=== PATIENT | male | born 1935 | race Caucasian/White ===

== ENCOUNTER → 2018-08-21 11:51 | Outpatient (CLI) | payer OTHER, SELFPAY ==
--- NOTE | 2018-08-21 | DI.US.S_ITS ---
PROCEDURE: US RENAL COMPLETE INDICATIONS: CKD TECHNIQUE: Real-time scanning was performed of the kidneys and bladder, with image documentation. COMPARISON: [facility], CT, ABDOMEN/PELVIS WITH CONTRAST, 01/01/2010, 14:05. FINDINGS: Kidneys: Kidneys are asymmetric in size. Right kidney measures 9.2 cm long; left kidney measures 13.3 cm long. Right renal cortical thickness is 0.8 cm; left renal cortical thickness is 1.9 cm. Renal cortical echotexture is normal on the right than on the left there appears to be an inferior directed mass lesion that is solid, measuring 3.4 x 3.8 x 2.9 cm. Elevated internal blood flow could not be visualized within this structure.. No hydronephrosis or nephrolithiasis. No suspicious solid mass lesions. Bladder: Pre-void bladder volume is 467 mL. Post-void residual is 24 mL. Pre-void images demonstrate no intraluminal masses or stones. On pre-void images, neither ureteral jets are noted with color Doppler interrogation. (Of note, ureteral jets may not be detectable in up to 25% of cases due to insufficient differences in specific gravity between ureteral and bladder urine). Miscellaneous: No free pelvic fluid. IMPRESSION: Masslike rounded structure projects exophytic from the inferior third of the left kidney, measuring up to 2.9 x 3.8 x 3.4 cm. Renal malignancy protocol CT or MR scanning is recommended to more accurately assess this structure. There is mild renal cortical lobulation involving the renal cortex bilaterally, but a lobulation that would mimic the appearance of the exophytic left lower renal cortical mass is not present on prior CT scanning from 2009. Moderate post void residual at the bladder lumen, 204 cc. Dictated by: Trevin Tabor M.D. on 08/21/2018 at 13:02 Approved by: Trevin Tabor M.D. on 08/21/2018 at 13:06
== END ==
PROVIDERS: PCP Family Medicine; Visit Provider Internal Medicine Nephrology
DX: N18.9 Chronic kidney disease, unspecified (principal)
CPT/HCPCS: 76770

== ENCOUNTER → 2018-09-14 16:54 | Outpatient (CLI) | payer OTHER, SELFPAY ==
--- NOTE | 2018-09-14 16:56 | DI.MRI.S_ITS ---
PROCEDURE: MR ABDOMEN WO CON INDICATIONS: LEFT RENAL MASS TECHNIQUE: Coronal HASTE, axial 2-D FLASH in- and [id number] with subtractions from the hepatic dome to the iliac crests. COMPARISON: None. FINDINGS: Image quality: Excellent. Kidneys: Diffuse thinning of the right renal cortex, but focal segmental anterior upper pole thinning of the left renal cortex with preservation of the left posterior renal cortex thickness. Scattered exophytic and cortical medullary cysts present in each kidney ranging in size from a few millimeters to the largest in the right lower pole measuring 2.0 cm. Along the lower pole of left kidney, there is a questionable exophytic solid mass versus preserved renal cortical thickness measuring about 2.8 x 4.1 x 3.1 cm which demonstrates isointense, to minimally hyperintense signal to renal cortex. There is a small cystic component present. Other solid organs: Liver is normal in overall size. Minimal parenchymal signal drop on out of phase imaging indicating slight fatty infiltration. Gallbladder may contain a 6 mm stone dependently near the gallbladder neck. Gallbladder morphology is otherwise normal. Biliary system is non dilated. Pancreas is normal in morphology. Spleen is normal in size. No adrenal nodules. Nodes and vessels: No retroperitoneal or mesenteric adenopathy by size criteria. Aorta and inferior vena cava are normal in size. Bowel and peritoneum: Unenhanced bowel loops are normal in caliber. No free fluid. Lung bases: No basal pleural effusions. Heart size is normal. Fat-containing hiatal hernia. Bones and soft tissues: No ventral hernias. Bone marrow is of normal overall signal. IMPRESSION: 1. 4.1 cm parenchymal abnormality arising from the anterior lower pole of left kidney may be a solid mass or lobulated, preserved renal cortex in the setting of segmental cortical atrophy and elsewhere in the kidney. Without the aid of IV contrast, delineation of a discrete mass is difficult. Consider half dose gadolinium based IV contrast enhanced MR images were versus imaging followup in 6 months. There is no local adenopathy. 2. Diffuse right renal atrophy and segmental left renal atrophy. 3. Possible cholelithiasis. 4. Minor hepatic steatosis. Dictated by: Fanny Chris M.D. on 09/15/2018 at 8:38 Approved by: Fanny Chris M.D. on 09/15/2018 at 9:09
== END ==
PROVIDERS: PCP Family Medicine; Visit Provider Internal Medicine Nephrology
DX: N28.89 Other specified disorders of kidney and ureter (principal); N26.1 Atrophy of kidney (terminal)
CPT/HCPCS: 74181

== ENCOUNTER → 2018-12-23 10:33 | Outpatient (CLI) | payer OTHER, SELFPAY ==
--- NOTE | 2018-12-23 | DI.US.S_ITS ---
PROCEDURE: US RENAL COMPLETE INDICATIONS: Disorder of kidney and ureter, unspecified TECHNIQUE: Real-time scanning was performed of the kidneys and bladder, with image documentation. COMPARISON: [facility], MR, MR ABDOMEN WO CON, 09/14/2018, 17:09. [facility], US, US RENAL COMPLETE, 08/21/2018, 12:00. FINDINGS: Kidneys: Kidneys are normal in size. Right kidney measures 9.4 cm long; left kidney measures 13.2 cm long. Right renal cortical thickness is 0.9 cm; left renal cortical thickness is 0.8 cm. Renal cortical echotexture is normal. No hydronephrosis or nephrolithiasis. Exophytic solid hypoechoic mass redemonstrated involving the inferior pole left kidney unchanged in size measuring 3.3 x 3.4 x 2.9 cm. Bilateral renal cysts redemonstrated measuring up to 2.6 cm on the right than 0.9 cm on the left. Bladder: Pre-void bladder volume is 242 mL. Post-void residual is 125 mL. Pre-void images demonstrate no intraluminal masses or stones. On pre-void images, bilateral ureteral jets are noted with color Doppler interrogation. (Of note, ureteral jets may not be detectable in up to 25% of cases due to insufficient differences in specific gravity between ureteral and bladder urine). Miscellaneous: No free pelvic fluid. IMPRESSION: 1. Exophytic, hypoechoic solid-appearing left inferior pole mass redemonstrated which is not significantly changed from prior ultrasound or MRI. Indolent renal cell carcinoma cannot be excluded and continued sonographic followup is recommended or alternatively renal protocol CT for further characterization. Dictated by: Ayo NORWOOD Interpreted: Joe Boo MD on 12/23/2018 at 13:30 Approved by: Joe Boo M.D. on 12/23/2018 at 16:01
== END ==
PROVIDERS: PCP Family Medicine; Visit Provider Internal Medicine Nephrology
DX: N28.89 Other specified disorders of kidney and ureter (principal); N28.1 Cyst of kidney, acquired
CPT/HCPCS: 76770

== ENCOUNTER → 2019-04-07 13:43 | Outpatient (CLI) | payer OTHER, SELFPAY ==
--- NOTE | 2019-04-07 | DI.US.S_ITS ---
PROCEDURE: US RENAL COMPLETE INDICATIONS: RENAL MASS TECHNIQUE: Real-time scanning was performed of the kidneys and bladder, with image documentation. COMPARISON: [facility], , US RENAL COMPLETE, 12/23/2018, 10:43. FINDINGS: Kidneys: Kidneys are stable in size. Right kidney measures 9.1 cm long; left kidney measures 13.6 cm long. Right renal cortical thickness is 0.6 cm; left renal cortical thickness is one point cm. No hydronephrosis or nephrolithiasis. Bilateral renal cysts are again noted. Largest is seen on the right measuring up to 1.8 cm, previously 2.6 cm. Left renal cyst measures approximately 9 mm. There is a stable 3.7 cm heterogeneously hypoechoic, solid-appearing mass in the inferior pole of the left kidney with associated vascularity. Right kidney is without suspicious solid mass lesions. Bladder: Pre-void bladder volume is 346 mL. Post-void residual is 289 mL. Pre-void images demonstrate no intraluminal masses or stones. On pre-void images, left ureteral jets are noted with color Doppler interrogation. Right ureteral jet was not visualized. (Of note, ureteral jets may not be detectable in up to 25% of cases due to insufficient differences in specific gravity between ureteral and bladder urine). Miscellaneous: No free pelvic fluid. IMPRESSION: 1. Stable sonographic appearance of the left kidney with persistent 3.7 cm inferior pole partially exophytic heterogeneous mass versus lobular renal contour. As before, an indolent renal cell carcinoma cannot be completely excluded. Recommend continued clinical and imaging surveillance. 2. Stable sonographic appearance of the right kidney which is again smaller than the left side and demonstrates mild cortical thinning. 3. Bilateral renal cysts are again noted. They appear stable on the left and smaller on the right. 4. Normal sonographic appearance of the distended urinary bladder with post void residual volume measuring 289 mL. Dictated by: Eduardo Roca M.D. on 04/07/2019 at 15:26 Approved by: Eduardo Roca M.D. on 04/07/2019 at 15:34
== END ==
PROVIDERS: PCP Family Medicine; Visit Provider Internal Medicine Nephrology
DX: N28.89 Other specified disorders of kidney and ureter (principal); N28.1 Cyst of kidney, acquired
CPT/HCPCS: 76770

== ENCOUNTER 2019-06-28 14:31 | Emergency (ER) | payer OTHER, SELFPAY ==
[2019-06-28 14:58] VITALS: BP 156/64; PULSE 62; RESP 15; TEMP 36.6; O2SAT 96
[2019-06-28 16:01] LABS: Bacteria Urine None Seen; RBC Urine None Seen (0-5/HPF); WBC Urine None Seen (0-5/HPF)
[2019-06-28 16:13] LABS: Culture Indicated Urine Cult Not Indicated; Squamous Epithelial Cell Urine 0-1 /HPF (0-5/HPF)
[2019-06-28 16:56] VITALS: BP 145/67; PULSE 64; RESP 15; O2SAT 96
--- NOTE | 2019-06-28 17:03 | ED_ITS ---
HPI - Male Genitourinary <Carly Romeromer, [employer] - Last Filed: 06/28/19 17:07> General Chief complaint: Urogenital-Male Stated complaint: Unable to Urinate Time Seen by Provider: 06/28/19 14:48 Source: patient Mode of arrival: Ambulatory Limitations: no limitations History of Present Illness HPI Narrative: The patient is an 83-year-old male with history of urinary retention who presents for chief complaint of inability to urinate. He states that he has been having trouble voiding for the past 2-3 days. He states that last night was very painful is unable to urinate, only voided a small stream this morning and now has pain in his bladder. He denies any dysuria urgency or frequency. Denies any hematuria. States he has called his primary care provider, who has sent in a referral for Urology Related Data Home Medications Medication Instructions Recorded Confirmed allopurinol 300 mg PO DAILY #0 01/01/10 06/28/19 aspirin 81 mg PO DAILY #0 01/01/10 06/28/19 tamsulosin 0.8 mg PO DAILY #0 01/01/10 06/28/19 acetaminophen 325 - 650 mg PO Q4-6H PRN 06/28/19 06/28/19 amlodipine 10 mg PO DAILY 06/28/19 06/28/19 atorvastatin 40 mg PO DAILY 06/28/19 06/28/19 cyclobenzaprine 10 mg PO TID PRN 06/28/19 06/28/19 gabapentin 100 mg PO TID PRN 06/28/19 06/28/19 hydralazine 20 mg PO TID 06/28/19 06/28/19 hydrochlorothiazide 25 mg PO DAILY 06/28/19 06/28/19 hydrocodone-acetaminophen 1 tab PO Q4-6H PRN 06/28/19 06/28/19 indomethacin 50 mg PO Q8H PRN 06/28/19 06/28/19 insulin NPH and regular human 46 unit SUBCUT BID 06/28/19 06/28/19 [Humulin 70/30 U-100 Insulin] isosorbide mononitrate 60 mg PO DAILY 06/28/19 06/28/19 levothyroxine 50 mcg PO DAILY 06/28/19 06/28/19 lisinopril 30 mg PO BID 06/28/19 06/28/19 metoprolol succinate 200 mg PO DAILY 06/28/19 06/28/19 nitroglycerin [Nitrostat] 0.4 mg SUBLINGUAL Q5-15M PRN 06/28/19 06/28/19 Allergies Allergy/AdvReac Type Severity Reaction Status Date / Time Anesthetic, Local Allergy Unknown Uncoded 09/24/17 12:52 Review of Systems <[facility] - Last Filed: 06/28/19 17:07> Review of Systems Narrative: GENERAL: Denies chills, fatigue, malaise, fever, sweats. HEENT: Denies sinus pain, ear pain, sore throat, difficulty swallowing, dizziness. RESPIRATORY: Denies dyspnea, cough, wheezing, hemoptysis, sputum. CARDIOVASCULAR: Denies chest pain, palpitations, orthopnea, edema, GASTROINTESTINAL: See HPI : See HPI MUSCULOSKELETAL: denies weakness, joint pain, or bony pain SKIN: Denies rash, skin lesions, or other NEUROLOGIC: Denies weakness, headache, numbness, change in speech, confusion, seizures, incoordination. PSYCHIATRIC: No concerning psychosocial issues. 12 point review of systems is negative except for those stated above Patient History <[facility] - Last Filed: 06/28/19 17:07> Social History Smoking Status: Never smoker Smoking Status: Never smoker Substance Use Type: does not use Exam <Carlyjeff Telles [facility] - Last Filed: 06/28/19 17:07> Narrative Exam Narrative: GENERAL: This is a well-nourished, well-developed patient, in no acute distress HEAD: Atraumatic. Normocephalic. No temporal or scalp tenderness. EYES: Pupils equal round and reactive. Extraocular motions intact. No scleral icterus. No injection or drainage. ENT: Nose without bleeding, purulent drainage or septal hematoma. Throat without erythema, tonsillar hypertrophy or exudate. Uvula midline. Airway patent. NECK: Trachea midline. No JVD or lymphadenopathy. Supple, nontender, no meningeal signs. CARDIOVASCULAR: Regular rate and rhythm RESPIRATORY: Clear to auscultation. Breath sounds equal bilaterally. No wheezes, rales, or rhonchi. The no cough. No increased respiratory effort. No accessory muscle use. GASTROINTESTINAL: Abdomen soft, non-tender, nondistended. No hepato- splenomegaly, or palpable masses. No guarding. Active bowel sounds all [address]rants. [address] catheter in place draining clear yellow urine, approximately 400 cc in bag EXTREMITIES: No clubbing, cyanosis, or edema. No joint tenderness, effusion, or edema noted. BACK: Nontender without deformity or crepitance. No flank tenderness. NEURO: AOx3. SKIN: No rash or erythema. Initial Vital Signs Initial Vital Signs: Vital Signs Temperature 97.9 F 06/28/19 14:58 Pulse Rate 62 06/28/19 14:58 Respiratory Rate 15 06/28/19 14:58 Blood Pressure 156/64 H 06/28/19 14:58 Pulse Oximetry 96 06/28/19 14:58 <Deann Gimenez DO - Last Filed: 06/29/19 09:06> Initial Vital Signs Initial Vital Signs: Vital Signs Temperature 97.9 F 06/28/19 14:58 Pulse Rate 62 06/28/19 14:58 Respiratory Rate 15 06/28/19 14:58 Blood Pressure 156/64 H 06/28/19 14:58 Pulse Oximetry 96 06/28/19 14:58 Course <ANGLE Melton - Last Filed: 06/28/19 17:07> Orders Ordered: ED Orders 06/28/19 15:40 Urine Microscopic Stat Vital Signs Vital signs: Vital Signs - 8 hr 06/28/19 14:58 06/28/19 16:56 Temperature 97.9 F Pulse Rate 62 64 Respiratory Rate 15 15 Blood Pressure 156/64 H Blood Pressure [Left Arm] 145/67 H Pulse Oximetry 96 96 <DO Daniel Wilkins Last Filed: 06/29/19 09:06> Orders Ordered: ED Orders 06/28/19 15:40 Urine Microscopic Stat Vital Signs Vital signs: Vital Signs - 8 hr 06/28/19 14:58 06/28/19 16:56 Temperature 97.9 F Pulse Rate 62 64 Respiratory Rate 15 15 Blood Pressure 156/64 H Blood Pressure [Left Arm] 145/67 H Pulse Oximetry 96 96 MDM - Male Genitourinary <ANGLE Melton - Last Filed: 06/28/19 17:07> Differential Diagnosis Differential diagnosis: Likely urinary tract infection and acute retention of urine Lab Data Labs: Lab Results 06/28/19 Range/Units 15:40 Urine RBC None seen (0-5/HPF) Urine WBC None seen (0-5/HPF) Ur Squamous Epith Cells 0-1 /hpf (0-5/HPF) Urine Bacteria None seen (None) Ur Culture Indicated? Cult not indicated Urine Dip Bedside Urine Glucose 100 mg/dl Bedside Urine Bilirubin - Negative Bedside Urine Ketone +/- 5 Urine Specific Osborn 1.020 Bedside Urine Occult Blood - Negative Bedside Urine pH 5.5 Bedside Urine Protein +/- 15 Bedside Urine Urobilinogen - Negative Bedside Urine Nitrite - Negative Bedside Urine Leukocytes - Negative Esterase MDM Narrative Medical decision making narrative: The patient is an 83-year-old male who presents with a chief complaint of urinary retention that started last night. He presented in immediately received Henry catheter by nursing. This relieved his pain completely knee felt much improved. No signs of infection in his urine. Patient states his primary care provider was placing a urology referral. I discussed at length monitoring for signs and symptoms of infection such as fever, pain, etcetera. Encouraged coming back to the emergency department for any acute concerns. I did offer to check his renal function, but he declined stating he has a renal ultrasound next week. Patient was discharged home with . They've no questions or concerns upon discharge and states understanding of return precautions as well as follow-up care. They state they're comfortable taking care of a Henry catheter at home. <Deann Gimenez, - Last Filed: 06/29/19 09:06> Lab Data Labs: Lab Results 06/28/19 Range/Units 15:40 Urine RBC None seen (0-5/HPF) Urine WBC None seen (0-5/HPF) Ur Squamous Epith Cells 0-1 /hpf (0-5/HPF) Urine Bacteria None seen (None) Ur Culture Indicated? Cult not indicated Urine Dip Bedside Urine Glucose 100 mg/dl Bedside Urine Bilirubin - Negative Bedside Urine Ketone +/- 5 Urine Specific Osborn 1.020 Bedside Urine Occult Blood - Negative Bedside Urine pH 5.5 Bedside Urine Protein +/- 15 Bedside Urine Urobilinogen - Negative Bedside Urine Nitrite - Negative Bedside Urine Leukocytes - Negative Esterase Discharge Plan Departure Patient Disposition: Home Clinical Impression: Acute retention of urine Discharge Date/Time: 06/28/19 17:29 Instructions: How to Care for Your Henry Catheter -- Male, DI for Urinary Retention in Men Activity Restrictions/Additional Instructions: Today we inserted a Henry catheter help drain her bladder. There are no signs of infection with your urine. Please follow-up with primary care provider in the next few days. From what it sounds like, over already contacted them and they are helping arrange a urology referral Please monitor for signs of infection such as fever, pain etcetera please come back to the emergency department for any acute concerns Prescriptions: No Action aspirin 81 mg Tablet,Delayed Release (Dr/Ec) 81 mg PO DAILY Qty: 0 RF: 0 tamsulosin 0.4 mg Capsule 0.8 mg PO DAILY Qty: 0 RF: 0 allopurinol 300 mg Tablet 300 mg PO DAILY Qty: 0 RF: 0 hydrocodone-acetaminophen 5-325 mg tablet 1 tab PO Q4-6H PRN (Reason: pain) RF: 0 cyclobenzaprine 10 mg Tablet 10 mg PO TID PRN (Reason: Muscle Spasm) RF: 0 hydralazine 10 mg Tablet 20 mg PO TID RF: 0 atorvastatin 80 mg Tablet 40 mg PO DAILY RF: 0 acetaminophen 325 mg Tablet 325 - 650 mg PO Q4-6H PRN (Reason: Fever Or Pain) RF: 0 metoprolol succinate 200 mg Tablet Extended Release 24 Hr 200 mg PO DAILY RF: 0 Humulin 70/30 U-100 Insulin 100 unit/mL (70-30) Suspension 46 unit SUBCUT BID RF: 0 isosorbide mononitrate 60 mg Tablet Extended Release 24 Hr 60 mg PO DAILY RF: 0 amlodipine 10 mg Tablet 10 mg PO DAILY RF: 0 levothyroxine 50 mcg Tablet 50 mcg PO DAILY RF: 0 indomethacin 50 mg Capsule 50 mg PO Q8H PRN (Reason: JOINT PAIN) RF: 0 nitroglycerin [Nitrostat] 0.4 mg Tablet, Sublingual 0.4 mg SUBLINGUAL Q5-15M PRN (Reason: Chest Pain) RF: 0 lisinopril 30 mg Tablet 30 mg PO BID RF: 0 hydrochlorothiazide 25 mg Tablet 25 mg PO DAILY RF: 0 gabapentin 100 mg Capsule 100 mg PO TID PRN (Reason: PAIN) RF: 0 Referrals: Christy Canas MD [Primary Care Provider] -
== END 2019-06-28 17:29 | disposition home or self-care (01) ==
PROVIDERS: Emergency Provider Nurse Practitioner Family; PCP Student in an Organized Health Care Education/Training Program
DX: R33.9 Retention of urine, unspecified (principal)
CPT/HCPCS: 51701; 51705; 51798; 81003; 81015; 99284

== ENCOUNTER → 2019-07-05 11:50 | Outpatient (CLI) | payer OTHER, SELFPAY ==
--- NOTE | 2019-07-05 | DI.US.S_ITS ---
PROCEDURE: US RENAL COMPLETE INDICATIONS: KIDNEY MASS TECHNIQUE: Real-time scanning was performed of the kidneys and bladder, with image documentation. COMPARISON: [facility], US, US RENAL COMPLETE, 12/23/2018, 10:43. [facility], MR, MR ABDOMEN WO CON, 09/14/2018, 17:09. [facility], US, US RENAL COMPLETE, 04/07/2019, 14:02. FINDINGS: Kidneys: Kidneys are normal in size. Right kidney measures 10.3 cm long; left kidney measures 12.9 cm long. Right renal cortical thickness is 0.7 cm; left renal cortical thickness is 1.4 cm. Renal cortical echotexture is normal. No hydronephrosis or nephrolithiasis. No suspicious solid mass lesions. Left renal cyst measuring 2.6 cm. Left renal cortical scarring involving the inferior pole. No mass is seen on today's examination. Bladder: Henry catheter present. Miscellaneous: No free pelvic fluid. IMPRESSION: 1. Left renal focal cortical scarring and no definite left renal mass seen. 2. Right renal cortical thinning. Dictated by: Ayo Coffey [facility] Interpreted: Marcos Mcfarland MD on 07/05/2019 at 13:31 Approved by: Marcos Mcfarland M.D. on 07/05/2019 at 20:51
== END ==
PROVIDERS: PCP Student in an Organized Health Care Education/Training Program; Visit Provider Internal Medicine Nephrology
DX: N28.89 Other specified disorders of kidney and ureter (principal); N28.1 Cyst of kidney, acquired
CPT/HCPCS: 76770

== ENCOUNTER 2019-08-10 10:53 | Observation (INO) | payer OTHER, SELFPAY ==
[2019-08-10] VITALS (7 sets, daily range): BP systolic 143–198; BP diastolic 55–93; PULSE 77–89; RESP 15–19; TEMP 36.7–37.6; O2SAT 95–98; BMI 34.0
--- NOTE | 2019-08-10 | DI.US.S_ITS ---
PROCEDURE: US CAROTID DOPPLER BI INDICATIONS: LEFT SIDED WEAKNESS,NUMBNESS 7 WEEKS.EVAL FOR CVA TECHNIQUE: Color and pulse Doppler interrogation was performed of both carotid systems, with image documentation and velocity measurements. COMPARISON: [facility], , CAROTID ARTERY DOPPLER BILAT, 07/26/2013, 7:33. FINDINGS: Stenosis calculations are based on SRU (Society of Radiologists in Ultrasound) criteria. Right side: Common carotid artery peak systolic velocity: 76 cm/sec. Internal carotid artery peak systolic velocity: 136 cm/sec. Internal carotid artery end diastolic velocity: 24 cm/sec. External carotid artery peak systolic velocity: 192 cm/sec. ICA/CCA peak systolic ratio: 1.7. Hoover scale imaging description: Mild to moderate calcific plaque Percent internal carotid artery stenosis: 50-69% stenosis within the proximal right internal carotid artery.. Vertebral artery: Flow direction is antegrade. Left side: Common carotid artery peak systolic velocity: 83 cm/sec. Internal carotid artery peak systolic velocity: Occluded Internal carotid artery end diastolic velocity: Occluded External carotid artery peak systolic velocity: 127 cm/sec. ICA/CCA peak systolic ratio: Not applicable. Hoover scale imaging description: Occlusive dense plaque at the proximal internal carotid artery on the left Percent internal carotid artery stenosis: Not applicable. Vertebral artery: Flow direction is antegrade. 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 Dictated by: Trevin Tabor M.D. on 08/11/2019 at 14:38 Approved by: Trevin Tabor M.D. on 08/11/2019 at 14:42
--- NOTE | 2019-08-10 | DI.US.S_ITS ---
PROCEDURE: US RENAL COMPLETE INDICATIONS: SURVEILANCE OF RENAL MASS TECHNIQUE: Real-time scanning was performed of the kidneys and bladder, with image documentation. COMPARISON: [facility], MR, MR ABDOMEN WO CON, 09/14/2018, 17:09. [facility], , US RENAL COMPLETE, 07/05/2019, 12:31. [facility], , US RENAL COMPLETE, 04/07/2019, 14:02. FINDINGS: Kidneys: Kidneys are asymmetric in size. Right kidney measures 8.0 cm long; left kidney measures 12.3 cm long. Right renal cortical thickness is 0.8 cm; left renal cortical thickness is 1.0 cm. Renal cortical echotexture is normal. No hydronephrosis or nephrolithiasis. No suspicious solid mass lesions on the right but there is a left-sided solid mass which has been followed over time. This mass is well seen by ultrasound and measures 3.2 x 3.8 x 3.5 cm with internal vascularity. It has not definitely enlarged. Bladder: Pre-void bladder volume is 762 mL. Post-void residual is 353 mL. Pre-void images demonstrate no intraluminal masses or stones. On pre-void images, left but not the right ureteral jets are noted with color Doppler interrogation. (Of note, ureteral jets may not be detectable in up to 25% of cases due to insufficient differences in specific gravity between ureteral and bladder urine). Miscellaneous: No free pelvic fluid. IMPRESSION: No change in size of the solid lower pole exophytic mass lesion involving the left kidney, likely a low-grade left renal cell carcinoma. 2. Relative atrophy right kidney. No hydronephrosis or nephrolithiasis is found bilaterally. Dictated by: Trevin Tabor M.D. on 08/11/2019 at 14:42 Approved by: Trevin Tabor M.D. on 08/11/2019 at 14:47
--- NOTE | 2019-08-10 | DI.ECHO.S_ITS ---
[place] [facility]---------+ [facility] +---------+ : : [address] : : : : [id number] : : : : Phone: [phone]+ Echocardiogram Report + + :Name: SANTY MCNAIR Study Date: 08/11/2019 Height: 69 in : :[facility] Weight: 226 lb : : Gender: Male BSA: 2.2 m2 : :: 1935 Age: 83 yrs BP: 144/79 mmHg: :Reason For Study: left sided weakness/ numbness x7 weeks. : :Ordering Physician: Yas : :Hospitalist Performed By: Madeline Ortiz : :Referring: MERCED TAMEZ : + + Interpretation Summary Overall left ventricular systolic function is preserved with the ejection fraction visually estimated to be 55-60% with a fairly small, focal area of significant hypokinesis in the mid interventricular septum but no other regional wall motion abnormalities. Left ventricular wall thickness is borderline increased with mild proximal septal thickening noted. The right ventricle is normal size and systolic function is borderline reduced. Pulmonary artery pressures cannot be estimated because of the lack of a measurable TR jet velocity but the IVC suggests a CVP of around 3 mmHg. Both atria are normal in size. The aortic valve is moderately calcified with mild aortic stenosis with a peak aortic velocity of 2.5 m/s and a mean gradient of 13 mmHg. There is no other significant valvular heart disease. The aortic arch is normal in size but with moderate calcification noted. Procedure: A two-dimensional transthoracic echocardiogram with color flow and Doppler was performed. The study quality was technically adequate. There is no prior echocardiogram noted for this patient. The patient was in normal sinus rhythm during the exam. Left Ventricle: The left ventricle is normal in size. Left ventricular wall thickness is borderline increased. There is mild proximal septal thickening noted. Overall left ventricular systolic function is preserved. The ejection fraction is estimated to be 55-60%. There is a fairly small, focal area of significant hypokinesis in the mid interventricular septum but no other regional wall motion abnormalities. Diastolic function could not be accurately assessed due to unobtainable data. Right Ventricle: The right ventricle is normal size. Right ventricular systolic function is borderline reduced. Atria: Both atria are normal in size. There is no Doppler evidence for an interatrial shunt. Mitral Valve: The mitral valve is grossly normal. There is no mitral regurgitation noted. Aortic Valve: The aortic valve is trileaflet. The aortic valve is moderately calcified. Reduced mobility of the non-coronary cusp. There is mild aortic stenosis. The peak aortic velocity is 2.5 m/sec. The aortic valve mean gradient is 13 mmHg. No aortic regurgitation is present. Tricuspid Valve: The tricuspid valve is normal in structure and function. There is a trace or physiologic amount of tricuspid regurgitation. Pulmonary artery pressures cannot be estimated because of the lack of a measurable TR jet velocity but the IVC suggests a CVP of around 3 mmHg. Pulmonic Valve: The pulmonic valve is normal in structure and function. There is no pulmonic valvular regurgitation. There is no other significant valvular heart disease. Great Vessels: The aortic root is normal size. The ascending aorta could not be visualized. The aortic arch is normal in size. But with moderate calcification noted. The IVC is of normal diameter and collapses greater than 50% with a sniff. This suggests a low right atrial pressure of 3 mm Hg. Pericardium/ Pleura There is no pericardial effusion. There is no pleural effusion. MMode/2D Measurements & Calculations LVIDd: 5.2 cm LVOT diam: 2.3 cm LVIDs: 3.8 cm Ao root diam: 2.9 cm FS: 26.8 % Ao Arch Diam (Prox Trans): 2.6 cm IVSd: 1.0 cm LVPWd: 1.2 cm LV corcoran. diameter/BSA (cm/m^2): 2.4 LV sys. diameter/BSA (cm/m^2): 1.8 LA A2 area: 20.7 cm2 RA long axis: 6.2 cm LA A4 area: 17.1 cm2 RA area: 19.9 cm2 LA length (vol): 5.3 cm RA vol: 54.7 ml LA vol: 56.4 ml RA : 25.1 ml/m2 LA vol index: 25.9 ml/m2 IVC diam: 1.2 cm RVD1 (basal): 3.0 cm TAPSE: 1.5 cm Doppler Measurements & Calculations Ao V2 max: 251.5 cm/sec LVOT Max Mode: 103.4 cm/sec Ao V2 mean: 187.4 cm/sec LV V1 max P.3 mmHg Ao max P.5 mmHg LV V1 VTI: 22.6 cm Ao mean P.8 mmHg ASHLEE(I,D): 1.9 cm2 Ao V2 VTI: 48.5 cm ASHLEE(V,D): 1.7 cm2 sev ratio: 0.46 ASHLEE indexed to BSA (cm^2/m^2): 0.90 Med Peak E' Mode: 11.2 cm/sec PA V2 max: 100.2 cm/sec Lat Peak E' Mode: 10.5 cm/sec PA V2 mean: 70.2 cm/sec PA mean P.2 mmHg PA Accel Time: 0.13 sec SV(LVOT): 94.6 ml Reading Physician:MUNA
--- NOTE | 2019-08-10 11:09 | DI.CT.S_ITS ---
PROCEDURE: CT HEAD/BRAIN WO CON INDICATIONS: cva, left sided weakness over several weeks. TECHNIQUE: Noncontrast 4.5 mm thick angled axial sections acquired from the foramen magnum to the vertex, with coronal and sagittal reformats. For radiation dose reduction, the following was used: automated exposure control, adjustment of mA and/or kV according to patient size. COMPARISON: None. FINDINGS: Image quality: Excellent. CSF spaces: Basal cisterns are patent. No extra-axial fluid collections. The ventricles are symmetric in size and shape. Brain: No intracranial bleeds or masses. There is cerebral volume loss for age, with resultant ventricular and sulcal prominence. There are periventricular and deep white matter chronic small vessel ischemic changes. There is intracranial internal carotid artery atherosclerosis. Skull and face: Calvarium and visualized facial bones appear intact, without suspicious lesions. Sinuses: Visualized sinuses and mastoids are clear except for a right-sided chronic appearing maxillary sinus opacification with reactive mild thickening of the osseous margins of the sinus (establishing chronicity).. IMPRESSION: Source of the asymmetric left-sided weakness persisting over several weeks is not found. Dictated by: Trevin Tabor M.D. on 08/10/2019 at 11:30 Approved by: Trevin Tabor M.D. on 08/10/2019 at 11:32
--- NOTE | 2019-08-10 11:12 | ED_ITS ---
HPI - Neuro Symptoms/Deficit General Chief Complaint: Neuro Symptoms/Deficit Stated Complaint: possibility of stroke Time Seen by Provider: 08/10/19 11:09 Source: patient Mode of arrival: Ambulatory Limitations: no limitations History of Present Illness HPI Narrative: This is an 83-year-old comes to the emergency department with complaint of possible stroke. His primary care contacted me and was concerned as patient has had some foot drop in his left foot and increasing weakness in his left upper extremity over the last several weeks. Patient states that these did seem to be sort of abruptly on set. Patient is for initial stroke evaluation and then to recontact Dr. Canas with results for potential admis shannon for the final workup. On evaluation patient states about 7 weeks ago he was having what sounds like some sort of urinary retention had a catheter removed was in place 3 weeks was removed had urinary infection was on antibiotics but had to have them switch secondary to adverse reaction to the m edication which he is still taking the 2nd antibiotic but he has had some symptoms in his urinary frequency and nocturia. He states that he has had left thigh numbness and hot feeling and was told he had meralgia paresthetica [place] also had weakness in the left foot and foot drop and notes that he cannot drive a stick shift and his toes catch on rugs when he walks. He states this is been going on for least 2 weeks has been slowly improving but the left leg is significantly weaker and the left upper extremity he has noted has also been weaker. And patient had bursitis. He gets Cordis all shots in the left arm. He has had no recent traumas or falls. He is insulin-dependent diabetic on hyp ertension, dyslipidemia an aspirin 81 mg with a TIA 10-15 years ago which he believes affected his right side, hypothyroid, BPH and gout history, CKD stage 4. He has had a CABG about 23 years ago, appendectomy and had a colon resection during his appendectomy when they incidentally found colon cancer. No tobacco, no alcohol and no illicit. Dr. Canas is his primary care. His data services developer is Dr. 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 On Anticoagulants: Yes (asa) Related Data Home Medications Medication Instructions Recorded Confirmed allopurinol 300 mg PO QPM #0 01/01/10 08/10/19 aspirin 81 mg PO DAILY #0 01/01/10 08/10/19 tamsulosin 0.8 mg PO QPM #0 01/01/10 08/10/19 acetaminophen 325 - 650 mg PO Q4-6H PRN 06/28/19 08/10/19 amlodipine 10 mg PO DAILY 06/28/19 08/10/19 atorvastatin 40 mg PO QPM 06/28/19 08/10/19 cyclobenzaprine 10 mg PO TID PRN 06/28/19 08/10/19 gabapentin 100 mg PO TID PRN 06/28/19 08/10/19 hydralazine 10 mg PO BID 06/28/19 08/10/19 hydrochlorothiazide 25 mg PO DAILY 06/28/19 08/10/19 hydrocodone-acetaminophen 1 tab PO Q4-6H PRN 06/28/19 08/10/19 indomethacin 50 mg PO Q8H PRN 06/28/19 08/10/19 isosorbide mononitrate 60 mg PO DAILY 06/28/19 08/10/19 levothyroxine 50 mcg PO DAILY 06/28/19 08/10/19 lisinopril 30 mg PO BID 06/28/19 08/10/19 metoprolol succinate 200 mg PO DAILY 06/28/19 08/10/19 nitroglycerin [Nitrostat] 0.4 mg SUBLINGUAL Q5-15M PRN 06/28/19 08/10/19 insulin NPH and regular human 46 unit SUBCUT BID 08/10/19 08/10/19 [Humulin 70/30 U-100 Insulin] Allergies Allergy/AdvReac Type Severity Reaction Status Date / Time Anesthetic, Local Allergy Unknown Uncoded 08/10/19 11:12 Review of Systems Review of Systems ROS Unobtainable: All systems reviewed & are unremarkable except as noted in HPI and below Patient History Social History Smoking Status: Never smoker Smoking Status: Never smoker alcohol intake frequency: holidays/special occasions only Substance Use Type: does not use Exam Narrative Exam Narrative: GEN: well nourished, well appearing male, alert and oriented x 3, patient appears to be in mild distress. HEENT: Atraumatic, pupils are equal round reactive to light, extraocular movements are intact, nares are clear, TMs are clear with no fluid, there is no conjunctival pallor. Throat is clear without any exudates, erythema, tonsillar enlargement or uvular deviation, no facial droop appreciated. HEART: Regular rate and rhythm without murmur, clicks, rubs. Pulses are equal in upper and lower extremities LUNGS:Lungs clear to auscultation, no wheezes, rales, crackles, chest moves symmetrically, no tachypnea or accessory muscle use. ABD:bowel sounds normal, soft, non-tender, no guarding, rebound, rigidity, no masses noted, no hepatosplenomegaly :No CVA tenderness MSCL: Non-tender, no muscle atrophy, muscles strength 5/5 upper and lower extremity on the right, left patient can holds upper extremity for 10 seconds but his left production line is significantly decreased compared to the right, full range of motion of upper extremities, patient has difficulty with some drop in his left lower extremity on testing. He also has some weakness with dorsiflexion on the left foot. NEURO:CN 2-12 intact, sensation normal, reflexes 2/4 upper and lower extremities. finger nose finger test normal, heel dubon test normal on right, and on left patient has difficulty. SKIN: no rash or skin changes. noted. Initial Vital Signs Initial Vital Signs: Vital Signs Temperature 98.1 F 08/10/19 10:57 Pulse Rate 81 08/10/19 10:57 Respiratory Rate 15 08/10/19 10:57 Blood Pressure 198/81 H 08/10/19 10:57 Pulse Oximetry 98 08/10/19 10:57 Scores NIH Stroke Scale Level of Conciousness: Alert, keenly responsive Ask month/age: Answers both questions correctly. Open/close eyes, close hand: Performs both tasks correctly Best gaze horizontal: Normal Visual crabtree: No visual loss Facial palsy: Normal symetrical movement Left arm drift: No drift for full 10 sec Right arm drift: No drift for full 10 sec Left leg drift: Drifts down, not to bed Right leg drift: No drift for full 10 sec Limb ataxia: Present in one limb Sensory on face/arms/legs: Normal, no sensory loss Best language: No aphasia, normal Dysarthria: Normal Extinction or inattention: No abnormality Total NIH Stroke scale score: 2 Course Orders Ordered: ED Orders 08/10/19 11:09 CT head/brain wo con Stat Urine Drug Screen, Rapid Stat 08/10/19 12:00 Basic Metabolic Panel Stat Complete Blood Count AUTO DIFF Stat Partial Thromboplastin Time Stat Prothrombin Time INR Stat Sodium Chloride (Normal Saline 0.9%) 1,000 mls @ 150 mls/hr IV CONT JOHN Last Admin: 08/10/19 12:11 Dose: 150 mls/hr Documented by: HYACINTH Discontinued Medications Aspirin (Aspirin Chew) 324 mg PO NOW ONE Stop: 08/10/19 11:57 Last Admin: 08/10/19 12:10 Dose: 324 mg Documented by: HYACINTH Vital Signs Vital signs: Vital Signs - 8 hr 08/10/19 10:57 08/10/19 11:00 08/10/19 12:00 Temperature 98.1 F Pulse Rate 81 77 79 Respiratory Rate 15 18 19 Blood Pressure 198/81 H Blood Pressure [Left Arm] 165/55 H 178/77 H Pulse Oximetry 98 95 96 MDM - Neuro Symptoms/Deficit Lab Data Attestation: I reviewed the patient's lab results. Result diagrams: 08/10/19 12:00 08/10/19 12:00 Labs: Lab Results 08/10/19 08/10/19 08/10/19 Range/Units 12:00 12:00 12:00 WBC 5.5 (4.5-11.0) X10^3/uL RBC 4.01 L (4.5-5.9) X10^6/uL Hgb 12.8 L (13.5-17.5) g/dL Hct 38.4 L (41-53) % MCV 95.9 (80-100) fL MCH 31.9 (26-34) PG MCHC 33.3 (30-36) % RDW 15.6 H (11.6-14.8) % Plt Count 151 (150-400) X10^3/uL Neut % (Auto) 67.2 (50-75) % Lymph % (Auto) 21.1 L (25-40) % Park % (Auto) 9.1 (3-14) % Eos % (Auto) 2.0 (2-4) % Baso % (Auto) 0.6 (0-2) % Neut # (Auto) 3700 (6309-2726) /uL Lymph # (Auto) 1200 (9935-0690) /uL Park # (Auto) 500 (0-900) /uL Eos # (Auto) 100 (0-450) /uL Baso # (Auto) 0 (0-100) /uL PT 14.0 H (10.1-12.7) SECONDS INR 1.2 (0.9-1.3) APTT 37 H (26.4-36.2) SECONDS Sodium 139 (137-145) mmol/L Potassium 5.0 (3.4-5.1) mmol/L Chloride 103 (98-107) mmol/L Carbon Dioxide 23 (22-32) mmol/L BUN 40 H (9-20) mg/dL Creatinine 2.30 H (0.66-1.25) mg/dL Estimated GFR 27.2 L (>60) mL/min BUN/Creatinine Ratio 17.4 (6-22) Glucose 324 H (80-110) mg/dL Calcium 10.2 (8.4-10.2) mg/dL Imaging Data CT scan - head: Radiologist's Impression: [place] [address] CT Scan Report Signed Patient: Ger Pickett [facility]#: [id number] : 5Acct:[id number] Age/Sex: 83 / MDate of Service: 08/10/19 Loc: ED Accession Number: [id number] Procedure: CT head/brain wo con Ordering Provider: Carly Deluca D.O. PROCEDURE: CT HEAD/BRAIN WO CON INDICATIONS: cva, left sided weakness over several weeks. TECHNIQUE: Noncontrast 4.5 mm thick angled axial sections acquired from the foramen magnum to the vertex, with coronal and sagittal reformats. For radiation dose reduction, the following was used: automated exposure control, adjustment of mA and/or kV according to patient size. COMPARISON: None. FINDINGS: Image quality: Excellent. CSF spaces: Basal cisterns are patent. No extra-axial fluid collections. The ventricles are symmetric in size and shape. Brain: No intracranial bleeds or masses. There is cerebral volume loss for age, with resultant ventricular and sulcal prominence. There are periventricular and deep white matter chronic small vessel ischemic changes. There is intracranial internal carotid artery atherosclerosis. Skull and face: Calvarium and visualized facial bones appear intact, without suspicious lesions. Sinuses: Visualized sinuses and mastoids are clear except for a right-sided chronic appearing maxillary sinus opacification with reactive mild thickening of the osseous margins of the sinus (establishing chronicity).. IMPRESSION: Source of the asymmetric left-sided weakness persisting over several weeks is not found. Dictated by: Trevin Tabor M.D. on 08/10/2019 at 11:30 Approved by: Trevin Tabor M.D. on 08/10/2019 at 11:32 ECG Data Attestation: I personally reviewed and interpreted this ECG as follows: Prior ECG tracings: available for review Interpretation: Sinus rhythm first-degree AV block rate of 77 AK 302, QRS of 100 QTC of 430. Nonspecific change, patient appears to have possible motion artifact . Patient has prior EKG from 01/03/2010 which shows similar changes with RSR in 3 AVF as well as T-wave inversion in aVL. No new ST segment changes are appreciated. MDM Narrative Medical decision making narrative: Patient comes in complaint with left-sided weakness and by primary care for concern for CVA. Patient definitely has decreased production line with his left upper extremity he has drift as well as footdrop in the left lower extremity. He has had some symptoms that are possibly concerning or more nerve impingement but with his lateralizing weakness on 1 side and what he describes as for acute onset is concerning for stroke. Initial head CT is negative CTA is deferred as patient has chronic kidney disease stage 4 will likely need MRI and rather than having double dose of contrast he is far outside the tPA or intervention window. Patient EKG does not show any acute changes. Patient's creatinine is 2.3 patient has stage 4 chronic kidney disease I do not have comparison from prior but this is likely close to baseline glucose is 324 electrolytes are normal although BUN is 40. Patient has anemia 12.8 no compariso n is no leukocytosis, RGW is elevated 15. Patient is far outside the window for tPA intervention or thrombolysis. An with patient's chronic kidney disease CTA was deferred so that patient could potentially receive MRI depending on his renal function. Spoke with Dr. Canas, she accepts for observation. Discussed patient's findings. Patient states that he has had discussions about MRI with his data services developer in the past he could potentially have an MRI with slightly decreased contrast does I do not have his prior GFR is available so she will follow-up with his data services developer to see if we can get this arranged and if his current GFR is appropriate. Discharge Plan Departure Patient Disposition: Admitted as Observation Clinical Impression: Cerebrovascular accident Referrals: Christy Canas MD [Primary Care Provider] - Admit Date/Time: 08/10/19 12:54 Admit Provider: Christy Canas
[2019-08-10] MEDS: ASPIRIN 81 MG CHEW TAB 324 MG PO (12:10)
[2019-08-10] MEDS: SODIUM CHLORIDE 0.9% 1,000 ML 150 ML IV (12:11)
[2019-08-10 12:14] LABS: Add Manual Diff / Slide Review NO; Basophils Absolute Auto 0 /uL (0-100); Basophils Percent Auto 0.6 % (0-2); Eosinophils Absolute Auto 100 /uL (0-450); Hematocrit 38.4 % (41-53); Hemoglobin 12.8 g/dL (13.5-17.5); Lymphocytes Absolute Auto 1200 /uL (1100-4500); Lymphocytes Percent Auto 21.1 % (25-40); Mean Corpuscular HGB Conc 33.3 % (30-36); Mean Corpuscular Hemoglobin 31.9 PG (26-34); Mean Corpuscular Volume 95.9 fL (80-100); Monocytes Absolute Auto 500 /uL (0-900); Monocytes Percent Auto 9.1 % (3-14); Neutrophils Absolute Auto 3700 /uL (1500-7000); Neutrophils Percent Auto 67.2 % (50-75); Platelet Count 151 X10^3/uL (150-400); Red Blood Cell Count 4.01 X10^6/uL (4.5-5.9); Red Cell Distribution Width 15.6 % (11.6-14.8); White Blood Cell Count 5.5 X10^3/uL (4.5-11.0)
[2019-08-10 12:22] LABS: INR 1.2 (0.9-1.3)
[2019-08-10 12:25] LABS: PTT Partial Thromboplastin Tim 37 SECONDS (26.4-36.2)
[2019-08-10 12:34] LABS: BUN Creatinine Ratio 17.4 (6-22); Blood Urea Nitrogen 40 mg/dL (9-20); Calcium 10.2 mg/dL (8.4-10.2); Carbon Dioxide 23 mmol/L (22-32); Chloride 103 mmol/L (98-107); Estimated Glomerular Filt Rate 27.2 mL/min (>60); Glucose 324 mg/dL (80-110); HEMOLYSIS 73 (0-50); Sodium 139 mmol/L (137-145)
--- NOTE | 2019-08-10 13:29 | PC.NURSE ---
Left foot weakness with drift. 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 Has bilateral neck pain, symptoms worsening over the last few weeks.
--- NOTE | 2019-08-10 14:38 | PC.NURSE ---
Patient alert oriented, c/o pain to left thigh,hand and neck. NIH 0, patient oriented to room and call light, bed alarm placed. at bedside.
--- NOTE | 2019-08-10 16:54 | P.HP_ITS ---
History of Present Illness History of Present Illness Date Patient Seen: 08/10/19 Time Patient Seen: 16:54 Chief complaint: possibility of stroke Narrative: 83 year old male is admitted from the ED secondary to TIA/stroke rule out. He presented in clinic today with left-sided arm and leg numbness and weakness x 7 weeks. The first symptom was left-sided numbness in his thigh from his hip to his knee status post a urinary catheterization for bladder outlet obstruction. There was associated pain, redness and swelling of the left thigh. He subsequently had an indwelling catheter for 3 weeks and was supposed to be on both pre-and post catheterization antibiotics. He did not complete the post catheterization antibiotics due to the weakness which was thought to be possibly a side effect from his antibiotics. He subsequently developed a urinary tract infection and is now on day 7/10 of antibiotics. Reports that his dysuria, polyuria, and urinary urgency have resolved. However, he continues to have left-sided thigh numbness and weakness. In the last 10 days, symptoms have worsened and he has not been able to lift his toes anymore and is starting to have foot drop. He cannot engage the gears on his motorcycle and has stopped riding his motorcycle for this reason. 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 Denies a headache. No visual changes. His does report that his voice seems to be more slurred. History of TIA more than 15 years ago. 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 Most recent carotid Doppler on 07/26/2013 showed less than 50% stenosis bilaterally. He is on atorvastatin 40 mg p.o. nightly. Lipid panel on 06/17/19 revealed a total cholesterol of 140, HDL 34, triglycerides 508. LDL was unable to be calculated secondary to his high triglycerides. Medical history significant for coronary artery disease, exercise-induced angina, history of smoking, [id number] history quit at age 34, NSTEMI, diabetes, and colon cancer. Recently saw his urologist, Dr. Workman, on 04/12/19. He noted a left renal abnormality on MRI and ultrasound that was stable at 3.7 cm, renal cell carcinoma cannot be ruled out. Plan is to repeat imaging in 3 months (now) and if stable, again in 6 months. Vital signs upon admission to the ED included temperature 98.1?, pulse 81, respirations 15, blood pressure 198/81 O2 saturation 9% on room air. Repeat blood pressure was 165/55. NIH stroke scale 2. EKG showed no change from baseline. CT of the head/brain was unremarkable for acute events. Lab workup significant for an INR 1.2 and creatinine of 2.3, baseline. Patient also had a mild normocytic/normochromic anemia that is relatively new to this patient. CBC on 07/05/2019 showed a hemoglobin of 13.0, hematocrit 38.9, normocytic/normochromic, essentially the same as today's labs. Past medical history: Diabetes mellitus type 2 Hyperlipidemia Hypertension Coronary artery disease Angina Chronic kidney disease stage 4 Hypothyroidism BPH with bladder outlet obstruction, status post TURP Arthritis Gout Heart murmur Bilateral cataracts Bilateral hearing loss Depression Ataxia Past surgical history: CABG Rotator cuff repair Colon cancer excision, 2009 Appendectomy, [address] elevation [place], 2009 Bilateral cataracts, 2014 Family history: Father with heart disease and hypertension Social history: , retired. Patient History Family & Social History Social History: household members spouse Prior Living Arrangements House Safety & Behavioral: Feels Safe in Current Yes Environment Been Physically Hurt or No Threatened By a Person Suicidal Ideation Description None Suicide Plan Description No Plan Tobacco & Substance use: Smoking Status Never smoker alcohol intake frequency holiday/special occasion Substance Use Type does not use Meds Home Medications and Allergies Home Medications Medication Instructions Recorded Confirmed Type allopurinol 300 mg PO QPM #0 01/01/10 08/10/19 History aspirin 81 mg PO DAILY #0 01/01/10 08/10/19 History tamsulosin 0.8 mg PO QPM #0 01/01/10 08/10/19 History acetaminophen 325 - 650 mg PO Q4-6H PRN 06/28/19 08/10/19 History amlodipine 10 mg PO DAILY 06/28/19 08/10/19 History atorvastatin 40 mg PO QPM 06/28/19 08/10/19 History cyclobenzaprine 10 mg PO TID PRN 06/28/19 08/10/19 History gabapentin 100 mg PO TID PRN 06/28/19 08/10/19 History hydralazine 10 mg PO BID 06/28/19 08/10/19 History hydrochlorothiazide 25 mg PO DAILY 06/28/19 08/10/19 History hydrocodone-acetaminophen 1 tab PO Q4-6H PRN 06/28/19 08/10/19 History indomethacin 50 mg PO Q8H PRN 06/28/19 08/10/19 History isosorbide mononitrate 60 mg PO DAILY 06/28/19 08/10/19 History levothyroxine 50 mcg PO DAILY 06/28/19 08/10/19 History lisinopril 30 mg PO BID 06/28/19 08/10/19 History metoprolol succinate 200 mg PO DAILY 06/28/19 08/10/19 History nitroglycerin [Nitrostat] 0.4 mg SUBLINGUAL Q5-15M PRN 06/28/19 08/10/19 History insulin NPH and regular human 46 unit SUBCUT BID 08/10/19 08/10/19 History [Humulin 70/30 U-100 Insulin] Allergies Allergy/AdvReac Type Severity Reaction Status Date / Time Anesthetic, Local Allergy Unknown Uncoded 08/10/19 11:12 Review of Systems Review of Systems ROS: Yes All systems reviewed with the patient and are negative except as otherwise documented Exam Vital Signs (past 8 hours): - 08/10/19 10:57 08/10/19 11:00 08/10/19 12:00 Temperature 98.1 F Pulse Rate 81 77 79 Respiratory Rate 15 18 19 Blood Pressure 198/81 H Blood Pressure [Left Arm] 165/55 H 178/77 H Pulse Oximetry 98 95 96 08/10/19 13:00 08/10/19 14:16 08/10/19 15:30 Temperature 98.8 F 99.4 F Pulse Rate 84 83 89 Respiratory Rate 16 18 17 Blood Pressure 145/93 H 143/79 H Blood Pressure [Left Arm] 190/84 H Pulse Oximetry 98 97 96 Oxygen Delivery Method Room Air Oxygen Flow Rate 0 Narrative Exam Narrative: General: Alert and oriented, appearing stated age and in no acute distress. Head: Head normocephalic/atraumatic. Eyes: conjunctiva and sclera clear, Ears: normal external exam, TM's intact and clear with normal canals, Nose: no deformity, discharge, inflammation, or lesions, Mouth: no deformity or lesions; pharynx normal without injection or exudate, Neck: Neck soft and supple, no lymphadenopathy. (unchanged from 06/17/2019) Lungs: Clear to auscultation bilaterally, no wheezes, rhonchi or rales. no wheezes rales or rhonchi. Heart: Normal S1 and S2 with regular rate and rhythm, no audible murmurs, rubs or gallops. Abdomen: Soft, non-tender, non-distended, no organomegaly. Possitive bowel sounds.bowel sounds positive. Msk: Increased muscle bulk and tone over cervical paraspinous muscles. Range of motion limited secondary to pain and side to side and head flexion and extension. Neurologic: CN II-XII grossly intact. Decreased sensation over left thigh from hip to knee. Strength 3/5 in left upper extremity and left lower extremity. Positive foot drop. Positive dysdiadochokinesia in left upper and lower extremity. Reduced [id number] testing in left upper extremity. Psych: Alert and oriented x 3. Objective Labs Result Diagrams: 08/10/19 12:00 08/10/19 12:00 Labs: Laboratory Results - last 24 hr 08/10/19 08/10/19 08/10/19 12:00 12:00 12:00 WBC 5.5 RBC 4.01 L Hgb 12.8 L Hct 38.4 L MCV 95.9 MCH 31.9 MCHC 33.3 RDW 15.6 H Plt Count 151 Neut % (Auto) 67.2 Lymph % (Auto) 21.1 L [place] % (Auto) 9.1 Eos % (Auto) 2.0 Baso % (Auto) 0.6 Neut # (Auto) 3700 Lymph # (Auto) 1200 [place] # (Auto) 500 Eos # (Auto) 100 Baso # (Auto) 0 PT 14.0 H INR 1.2 APTT 37 H Sodium 139 Potassium 5.0 Chloride 103 Carbon Dioxide 23 BUN 40 H Creatinine 2.30 H Estimated GFR 27.2 L BUN/Creatinine Ratio 17.4 Glucose 324 H Calcium 10.2 Assessment & Plan Assessment & Plan narrative: Assessment 1: Left-sided weakness and numbness, rule out stroke. Patient has risk factors including type 2 diabetes mellitus, CAD, CKD stage 4, hypertension, hyperlipidemia, and possible renal malignancy. Plan: Will look for underlying etiology with carotid Doppler and echo. Patient has declined MR stroke protocol secondary to his kidney disease. PT/OT/ST. Will continue aspirin and add Lovenox. Stroke precautions. Possible that he may have a DVT in his LLE due to his unilateral pain, redness, and swelling, will check D-dimer and proceed to duplex US if indicated. Assessment 2: Left renal abnormality, present on admission, 3.7 cm, concern for malignancy.. Plan: Due for repeat imaging, will complete ultrasound the hospital. Assessment 3: Diabetes mellitus type II with neuropathy, nephropathy, and vascular disease, insulin controlled, chronic. A1c 9.4% on 02/01, 6.3 on 06/03. Plan: Dr. Nunez, endocrinology consulting in the outpatient setting. Continu e home humalin 70/30 47 units qam and 35 units qhs. Glucose checks. Diabetic diet. Assessment 4: Hyperlipidemia, chronic, triglycerides not at goal of less than 150. LDL unknown, goal less than 50. Plan: Will increase atorvastatin from 40 to 80 mg p.o. q.h.s.. Assessment 5: Hypertension, chronic, goal <140/[address] Workman, nephrology. Plan: Continue home medications: Amlodipine, isosorbide, metoprolol, lisinopril, hydralazine, hydrochlorothiazide. Assessment 6: Coronary artery disease, chronic. Plan: Please see #1. Assessment 7: Angina, chronic, no current symptoms. Plan: Nitroglycerin as needed. Assessment 8: Chronic kidney disease stage 4, creatinine at baseline. Plan: Will trend. Assessment 9: Hypothyroidism, chronic, TSH 2.16 on 06/17/2019, at goal per endocrinology. Plan: Continue home dose of levothyroxine 50 mcg p.o. q.day. Assessment 10: BPH with bladder outlet obstruction, status post TURP and recent 3 week cathertization with subsequent UTI, present on admission, patient clinically asymptomatic. Plan: Catheter now out, on day 710 of antibiotics for recent UTI, continue. Continue home tamsulosin. Assessment 11: Arthritis, chronic. Plan: Patient denies any current complaints, will watch closely. Assessment 12: Gout, chronic Plan: Patient denies any current complaints, will watch closely. Assessment 13: Heart murmur, chronic Plan: Updating echo as noted in #1. Assessment 14: Ataxia, chronic. Plan: Patient is a fall risk, stroke precautions. PT to consult. Assessment 15: Anemia, normocytic/normochromic, present on admission, relatively new. Mild, likely multifactorial. Plan: Will trend CBC. DVT prophylaxis: Lovenox Code: Full Patient's expected length of stay: Greater than 2 midnights. Patient is under inpatient status due to severity of presenting symptoms, complexity of treatment plan, and risk of adverse event. Quality VTE Deep Vein Thrombosis/Pulmonary Embolism Present on Admission: No
[2019-08-10] MEDS: ATORVASTATIN 20 MG TABLET 80 MG PO (19:21)
[2019-08-10] MEDS: lisinopriL 10 MG TABLET 30 MG PO (19:22)
[2019-08-10] MEDS: HYDRALAZINE 10 MG TABLET PO (19:22)
[2019-08-10] MEDS: GABAPENTIN 100 MG CAPSULE PO (19:22)
[2019-08-10] MEDS: INSULIN NPH/REG 70-30 100 UNIT/ML 3ML VIAL 35 UNIT SUBCUT (19:23)
[2019-08-11] VITALS (8 sets, daily range): BP systolic 144–183; BP diastolic 79–82; PULSE 65–88; RESP 16–18; TEMP 36.3–37.8; O2SAT 94–97
--- NOTE | 2019-08-11 04:49 | PC.NURSE ---
Pt is AxOx3, VSS, tolerating room air. Doing wellTe NIH=0 Fingerstick overnight 82; asymptomatic 8oz OJ given SBA to BR. Had BM overnight No pain Reports numbness to anterior aspect of left thigh along with weakness to left arm/hand Tele: 1st AVB, BBB, Junctional
[2019-08-11] MEDS: LEVOTHYROXINE 50 MCG TABLET PO (05:30)
[2019-08-11 07:28] LABS: D Dimer 313 ng/mL (<230)
[2019-08-11 07:37] LABS: BUN Creatinine Ratio 14.8 (6-22); Blood Urea Nitrogen 31 mg/dL (9-20); Calcium 9.7 mg/dL (8.4-10.2); Carbon Dioxide 24 mmol/L (22-32); Chloride 105 mmol/L (98-107); Estimated Glomerular Filt Rate 30.2 mL/min (>60); Glucose 121 mg/dL (80-110); HEMOLYSIS < 15 (0-50); Potassium 4.4 mmol/L (3.4-5.1); Sodium 140 mmol/L (137-145)
--- NOTE | 2019-08-11 08:10 | ST.IPIE ---
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 Canas Reason for Referral TIA Stroke Protocol Past Medical History Patient History Patient was admitted for one sided weakness. CT was negative. He declined MRI secondary to kidney disease. 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 Able to hear when spoken to loudly and with assistance of lip reading. Educational Status Education Level Retired [employer] Previous Therapy Previous Speech-Language Therapy No Oral Motor Examination Oral Motor Exam Completed No Subjective Subjective Patient was sitting up in bed washing his face. He was alert , cooperative and pleasant. His was not present in the room. - - Receptive Language Yes/No Questions Skill Level WNL Following Directions - Verbal Skill Level WNL Defining Words Skill Level WNL Auditory Comprehension Skill Level WNL Reading Comprehension Comments Did not test Receptive Language Comments Receptive Language Comments Receptive language is within functional limits for following commands and conversation. - Expressive Language Automatic Speech Skill Level WNL Sentence Closure Skill Level WNL Object Naming Skill Level Mildly Impaired Oral Expression Skill Level Mildly Impaired Written Expression Comments Did not test Expressive Language Comments Expressive Language Comments Mild word finding difficulty reported by patient, but not observed in conversation. He reports difficulty remembering names or remembering words such as primary when referring to his primary doctor. Speech was >95% intelligible with two mild speech sound substitutions or eliminations observed in conversation. Per notes, patient's reports new onset of mildly slurred speech . - Findings Language Findings Patient scored 22/30 on the SLUMs indicating mild neurocognitive impairment. He was not able to copy a 3 dimensional figure or remember 5 words during delayed recall . He lost one point during sentence repetition and one for getting the date wrong ( off by one day). Recommendations Recommendations Patient endorses memory and word finding difficulty over the last few years. His manages his schedule including many doctor's appointments and his medication for him. He appears to be at baseline cognitive function with no acute changes; however, he would benefit from education regarding mild neurocognitive impairment as well as compensatory strategies for memory. He may also be a good candidate for outpatient speech therapy. Treatment Goals Short Term Goals Don will verbalize understanding of compensatory memory strategies provided in writing and through discussion .
--- NOTE | 2019-08-11 09:17 | PM.PN.1 ---
Subjective Subjective Date Patient Seen: 08/11/19 Time Patient Seen: 09:17 Interval history: Patient reports uneventful night, nurse reports the same. Patient reports that he is feeling much better, has had some return of strength in his left leg and is now able to move his left foot in a more normal manner. Still does not think that he could ride his motorcycle and shift years but, overall, improving picture. Occupational and speech therapy have seen patient this morning, no neurological concerns. Awaiting physical therapy consult. Exam Vital Signs (past 8 hours): - 08/11/19 05:12 08/11/19 07:46 Temperature 98.8 F 97.3 F L Pulse Rate 78 82 Respiratory Rate 18 18 Blood Pressure 162/79 H 168/81 H Pulse Oximetry 96 96 Oxygen Delivery Method Room Air Oxygen Flow Rate 0 Narrative Exam Narrative: General: Alert and oriented, appearing stated age and in no acute distress. Head: Head normocephalic/atraumatic. Eyes: conjunctiva and sclera clear, Ears: normal external exam, TM's intact and clear with normal canals, Nose: no deformity, discharge, inflammation, or lesions, Mouth: no deformity or lesions; pharynx normal without injection or exudate, Neck: Neck soft and supple, no lymphadenopathy. (unchanged from 06/17/2019) Lungs: Clear to auscultation bilaterally, no wheezes, rhonchi or rales. no wheezes rales or rhonchi. Heart: Normal S1 and S2 with regular rate and rhythm, no audible murmurs, rubs or gallops. Abdomen: Soft, non-tender, non-distended, no organomegaly. Possitive bowel sounds.bowel sounds positive. Msk: Increased muscle bulk and tone over cervical paraspinous muscles. Range of motion limited secondary to pain and side to side and head flexion and extension. Neurologic: CN II-XII grossly intact. Decreased sensation over left thigh from hip to knee. Strength 4/5 in left upper extremity and left lower extremity. Mildly positive foot drop. Mildly positive dysdiadochokinesia in left upper and lower extremity. Reduced [id number] testing in left upper extremity. Psych: Alert and oriented x 3. Objective Labs Result Diagrams: 08/10/19 12:00 08/11/19 06:40 Labs: Laboratory Results - last 24 hr 08/10/19 08/10/1920 12:00 12:00 12:00 WBC 5.5 RBC 4.01 L Hgb 12.8 L Hct 38.4 L MCV 95.9 MCH 31.9 MCHC 33.3 RDW 15.6 H Plt Count 151 Neut % (Auto) 67.2 Lymph % (Auto) 21.1 L [place] % (Auto) 9.1 Eos % (Auto) 2.0 Baso % (Auto) 0.6 Neut # (Auto) 3700 Lymph # (Auto) 1200 [place] # (Auto) 500 Eos # (Auto) 100 Baso # (Auto) 0 PT 14.0 H INR 1.2 APTT 37 H D-Dimer Sodium 139 Potassium 5.0 Chloride 103 Carbon Dioxide 23 BUN 40 H Creatinine 2.30 H Estimated GFR 27.2 L BUN/Creatinine Ratio 17.4 Glucose 324 H Calcium 10.2 08/11/19 08/11/19 06:40 06:40 WBC RBC Hgb Hct MCV MCH MCHC RDW Plt Count Neut % (Auto) Lymph % (Auto) [place] % (Auto) Eos % (Auto) Baso % (Auto) Neut # (Auto) Lymph # (Auto) [place] # (Auto) Eos # (Auto) Baso # (Auto) PT INR APTT D-Dimer 313 H Sodium 140 Potassium 4.4 Chloride 105 Carbon Dioxide 24 BUN 31 H Creatinine 2.10 H Estimated GFR 30.2 L BUN/Creatinine Ratio 14.8 Glucose 121 H D Calcium 9.7 Assessment & Plan Assessment & Plan narrative: Assessment 1: Left-sided weakness and numbness, rule out stroke. Patient has risk factors including type 2 diabetes mellitus, CAD, CKD stage 4, hypertension, hyperlipidemia, and possible renal malignancy. Plan: Carotid Doppler still pending, echo showed an ejection fraction of 55-60% with mild aortic stenosis secondary to moderately calcified valve. Notably, there was no significant valvular heart disease. D-dimer was elevated but left lower extremity duplex ultrasound was negative for DVT. Patient has declined MR stroke protocol secondary to his kidney disease. PT/OT/ST consulting. Will continue aspirin and add Lovenox. Stroke precautions. Patient does feel better clinically, if carotid Doppler ultrasound is reassuring, will plan for discharge to home tonight with follow up in the clinic in 1 week. Assessment 2: Left renal abnormality, present on admission, 3.7 cm, concern for malignancy. Plan: Due for repeat imaging, ultrasound pending. Assessment 3: Diabetes mellitus type II with neuropathy, nephropathy, and vascular disease, insulin controlled, chronic. A1c 9.4% on 02/01, 6.3 on 06/03. Plan: Dr. Nunez, endocrinology consulting in the outpatient setting. Continue home humalin 70/30 47 units qam and 35 units qhs. Glucose checks. Diabetic diet. Assessment 4: Hyperlipidemia, chronic, triglycerides not at goal of less than 150. LDL unknown, goal less than 50. Plan: Continue increased dose of atorvastatin at 80 mg p.o. q.h.s.. Assessment 5: Hypertension, chronic, goal <140/[address] Workman, nephrology. Has been mostly controlled overnight, elevated this morning but he has had multiple therapies and studies. Plan: Continue home medications: Amlodipine, isosorbide, metoprolol, lisinopril, hydralazine, hydrochlorothiazide. Assessment 6: Coronary artery disease, chronic. Plan: Please see #1. Assessment 7: Angina, chronic, no current symptoms. Plan: Nitroglycerin as needed. Assessment 8: Chronic kidney disease stage 4, creatinine at baseline. Plan: Will trend. Assessment 9: Hypothyroidism, chronic, TSH 2.16 on 06/17/2019, at goal per endocrinology. Plan: Continue home dose of levothyroxine 50 mcg p.o. q.day. Assessment 10: BPH with bladder outlet obstruction, status post TURP and recent 3 week cathertization with subsequent UTI, present on admission, patient clinically asymptomatic. Plan: Catheter now out, on day 810 of antibiotics for recent UTI, continue. Continue home tamsulosin. Assessment 11: Arthritis, chronic. Plan: Patient denies any current complaints, will watch closely. Assessment 12: Gout, chronic Plan: Patient denies any current complaints, will watch closely. Will update uric acid level. Assessment 13: Heart murmur, aortic stenosis, chronic Plan: Please see 1. Assessment 14: Ataxia, chronic. Plan: Patient is a fall risk, stroke precautions. PT consulting. Assessment 15: Anemia, normocytic/normochromic, present on admission, relatively new. Mild, likely multifactorial. Plan: Trending CBC. DVT prophylaxis: Lovenox Code: Full Quality VTE Deep Vein Thrombosis/Pulmonary Embolism Present on Admission: No
--- NOTE | 2019-08-11 09:20 | DI.US.S_ITS ---
PROCEDURE: US PERIPH VENOUS LOW EXTREM LT INDICATIONS: EDEMA TECHNIQUE: Real-time imaging, as well as color and pulse Doppler interrogation, were performed of the lower extremity deep veins from the inguinal ligament to the popliteal fossa. COMPARISON: None. FINDINGS: The common femoral, femoral and popliteal veins are normally compressible, and free of intraluminal thrombus. Color and pulse Doppler demonstrate normal phasic intraluminal flow. There is normal augmentation response to distal compression maneuver. IMPRESSION: No DVT found left leg. Dictated by: Trevin Tabor M.D. on 08/11/2019 at 11:34 Approved by: Trevin Tabor M.D. on 08/11/2019 at 11:34
--- NOTE | 2019-08-11 10:40 | PT-IP ANOTE ---
1020: Pt has been off the floor for testing all morning. He is getting a LE US, carotid US and ECHO per nursing. He might not get a brain MRI with contrast d/t stage IV renal failure. Con't PT efforts.
[2019-08-11] MEDS: ENOXAPARIN 30 MG/0.3 ML SYRINGE SUBCUT (10:57)
[2019-08-11] MEDS: ASPIRIN EC 81 MG TABLET PO (10:57)
[2019-08-11] MEDS: METOPROLOL ER 50 MG TABLET 200 MG PO (10:58)
[2019-08-11] MEDS: AMLODIPINE 5 MG TABLET 10 MG PO (10:59)
[2019-08-11] MEDS: hydroCHLOROthiazide 25 MG TABLET PO (10:59)
[2019-08-11] MEDS: lisinopriL 10 MG TABLET 30 MG PO (10:59)
[2019-08-11] MEDS: INSULIN NPH/REG 70-30 100 UNIT/ML 3ML VIAL 47 UNIT SUBCUT (11:00)
[2019-08-11] MEDS: HYDRALAZINE 10 MG TABLET PO (11:00)
[2019-08-11] MEDS: ISOSORBIDE MONONITRATE ER 30 MG TABLET 60 MG PO (11:00)
[2019-08-11] MEDS: NITROFURANTOIN ER 100 MG CAPSULE PO (12:28)
--- NOTE | 2019-08-11 13:38 | OT.IP.EVAL ---
Occupational Therapy Inpatient Evaluation/Re-Eval M1 PT/OT-IP Prior Functional Status Start: 08/11/19 10:39 Freq: Status: Active Protocol: Document 08/11/19 13:50 EG (Rec: 08/11/19 15:07 EG [id number]) Medical Review Prior Functional Status Medical History Reviewed Yes Mobility and Gait Patient ambulates independently without a device. Last fall 2 months ago when blood sugar low per pt. Prior Functional Level (Other details) Pt was independent with all self care except assisted with L sock and shoe due to LLE weakness. does all IADLS at home. Pt still drives automatic transmission vehicle. He has been unable to drive his motorcycle or stick shift truck for last month due to LLE weakness Social History Household Members spouse Living Arrangements House Number of Floors (Floors) One Floor Number of Stairs To Enter/Railing? 1 step, no railing Employment Status Retired Additional Social History Comment M2 OT-IP Current Condition Start: 08/11/19 17:39 Freq: Status: Active Protocol: Document 08/11/19 13:38 PJM (Rec: 08/11/19 18:07 PJM [id number]) Occupational Therapy Current Condition Current Condition Evaluation Date 08/11/19 Treatment Diagnosis decreased self care, functional mobility w/LLE weakness, R/O stroke Diagnosis Onset Date 08/10/19 Post Operative Precautions Other Precautions fall risk M3 OT- IP Subjective and Pain Start: 08/11/19 17:39 Freq: Status: Active Protocol: Document 08/11/19 13:38 PJM (Rec: 08/11/19 18:07 PJM [id number]) OT- Subjective Occupational Therapy Visit Type Type Initial Evaluation Visit Start Time 12:36 Visit Stop Time 13:38 Total Visit Minutes 62 Notes Pt verbose with prolonged history given. Occupational Therapy Visit Comments Patient Comments I feel pretty good right now. Patient/Caregiver Goals to go home and be able to ride his motorcycle OT Pain Assessment Pain When Pain Assessed After Treatment Pain Present Pain Present Denied Pain M4 OT- IP ADL's Start: 08/11/19 17:39 Freq: Status: Active Protocol: Document 08/11/19 13:38 PJM (Rec: 08/11/19 18:07 PJM [id number]) OT [id number] General Evaluation Self-Feeding Ability Independent OT ADL-Grooming General Evaluation Grooming Ability Independent Comments OT Grooming Comments washing hands at sink OT ADL-Oral Care Comments Oral Care Comments did not occur this session OT ADL-Dressing General Eval Upper Body Dressing Ability Independent Lower Body Dressing Ability Minimal Assistance Areas Needing Assistance Socks,Shoes Assistive Devices Dressing Assistive Devices Long Handled Shoe Horn,Director Of Direct Marketing ,Sock Aid Comments OT Dressing Comments Provided education re: use of custom frame assembler and sock aid for lower body dressing to increase independence in donning and doffing L sock and shoe. Pt needs min assist and verbal cues to use unfamiliar equipment. OT ADL-Toileting General Evaluation Toileting Ability Independent OT ADL-Bathing Comments OT Bathing Comments did not occur this session; recommend use of shower seat and grab bars at home due to LLE weakness which makes pt at risk for falls; provided long bath sponge M5 OT- IP IADL's Start: 08/11/19 17:39 Freq: Status: Active Protocol: Document 08/11/19 13:38 PJM (Rec: 08/11/19 18:07 PJ [id number]) OT-Instrumental Activities of Daily Living Deficits IADL Deficits Identified Deficits Home Safety Awareness Awareness of Need for Assistance at Home Good Awareness Ability to Problem Solve Emergency Able to Problem Solve Situations Home Safety Comments pt states assists with all IADLS at home Medication Management Medication Management Caregiver Administers Money Management Money Management Caregiver Provides Assistance Meal Preparation Meal Preparation Caregiver Provides Assist Flight Teacher Flight Teacher Caregiver Provides Assist Driving Driving Comments pt still drives automatic transmission vehicle M6 OT- IP Functional Cognition Start: 08/11/19 17:39 Freq: Status: Active Protocol: Document 08/11/19 13:38 PJM (Rec: 08/11/19 18:07 [facility] [id number]) Cognitive Factors Limiting Selfcare Function Cognitive Ability Level of Alertness Alert Patient Orientation Name,Age,Birthday,Month,Date, Year,Day of Week,Place, Situation Attention Span Ability Capable of Focused Attention, Capable of Sustained Attention Ability to Follow Commands Able to Follow One Step Commands Memory Description No Deficits Noted Problem Solving Ability Needs Assist to Identify Solutions Cognitive Comments Cognitive Assessment Comments Pt distracts self with conversation at times; requiring verbal cues to redirect OT- Vision and Hearing OT- Hearing Assessment OT- Hearing Assessment Right Ear Impaired,Left Ear Impaired OT- Vision Assessment Visual Acuity Glasses All The Time Occular Pursuits WFL Visual [place] WFL Diplopia Absent Visual Spacial Neglect Not Applicable Vision Assessment Comments No new vision deficits identified. M7 OT- IP Mobility and Balance Start: 08/11/19 17:39 Freq: Status: Active Protocol: Document 08/11/19 13:38 PJM (Rec: 08/11/19 18:07 [facility] [id number]) OT- Bed Mobility Assessment Supine to Sit Supine to Sit Assist Standby Assistance,Bedrails Scooting Scooting to Edge of Bed Independent OT-Transfer Assessment Sit to and From Stand Sit to and from Stand Standby Assistance,1 Person Assistance Transfers Transfer Ability Standby Assistance,1 Person Assistance Technique Transfer Destination Chair,Toilet Transfer Technique Stand Step Pivot Devices Transfer Assistive Devices Gait Belt Comments Mobility Comments pt transferred from bed to chair without a device OT- Gait Assessment Comments Gait Ability Comments Pt ambulating to bathroom without a device per RN with SBA. OT- Balance Assessment Sitting Balance and Reactions Static Sitting Balance Ability Good Dynamic Sitting Balance Ability Good Comments Other Balance Tests/Deviations/Treatment see P.T. notes for further : balance assessment, no LOB noted when walking out of bathroom without a device or standing at sink to wash hands M8 OT- IP Objective Assessments Start: 08/11/19 17:39 Freq: Status: Active Protocol: Document 08/11/19 13:38 PJM (Rec: 08/11/19 18:07 [facility] [id number]) OT Gross Range of Motion Upper Extremity Range of Motion Assessment Left Impaired ROM Impairments pt has hx of L shoulder bursitis with multiple cortisone shots, R shoulder scaption 110,L shoulder 100. L wrist ext limited to about 30 degrees due to pain and min edema. Pt reports sudden onset L wrist hand pain and edema on 08/08/19, now resolving (has hx of gout?) OT Strength Upper Extremity Strength Assessment Left Impaired Shoulder L flex 4+/5 (pain) Elbow L flex and ext 4+/5 (slight shoulder pain) Wrist 4/5 (pain) Hand 4-/5 (pain) Comments Strength Comments RUE WNL for age, L slightly weaker than R but pt has pain with MMT on L OT- Coordination Assessment Upper Extremity Finger to Nose Test Left UE Impaired Finger Tapping Test Within Functional Limits Comments Coordination Comments LUE finger to nose mildly slowed compared to R, ? due to shoulder and wrist pain OT-Muscle Tone Assessment Muscle Tone WNL Yes OT Sensation Assessment Comments Summary Comments Pt detects lt touch throughout LUE/hand and denies BUE sensory deficits Edema Edema Present Edema Comments min edema noted in L wrist and hand, much imporved since onset on 08/08/19 per pt M9 OT- IP Assessment and Plan Start: 08/11/19 17:39 Freq: Status: Active Protocol: Document 08/11/19 13:38 PJM (Rec: 08/11/19 18:07 PJM [id number]) OT Summary Assessment and Plan Potential Rehabilitation Potential Good Analytic Complexity at Evaluation Low Summary OT Impairments Pain,Dressing,Shower Transfers Assessment Summary Low complexity OT assessment completed on this 83 yr old man admitted with progressive LLE>LUE weakness to r/o stroke. Head CT negative with pt declining MRI due to claustrophobia. No new deficits identified in vision of cognition. Pt has mildly decreased strength in LUE and hand (non dominant) but difficult to determine whether this is new deficit vs residual from L shoulder bursitis and recent onset L wrist/hand pain/edema. Pt is close to, or at, his baseline level of function in self care skills. Educated pt re: use of custom frame assembler, sock aide and long shoe horn to increase independence in lower body dressing. Recommend shower seat and use of long bath sponge to decrease fall risk when showering. Pt verbalizes understanding of all education , but would benefit from one additional OT visit for further dressing practice with new equipment if still her tomorrow. Pt is safe for discharge home with supportive when medically stable. Goals Dressing Goal Independent,Long Handled Shoe Horn,Director Of Direct Marketing,Sock Aid Shower Transfer Goal Independent,Walk-in Shower, Shower Chair,Grab Bars Patient/Caregiver Education Goal Demonstrate Energy Conservation and Pacing Days to Meet Goals 1 Frequency of Treatment Frequency Of Treatment Once a Day Treatment Plan OT Treatment Plan ADL Training,Patient/Family Education,Discharge Planning Discharge Recommendations OT Discharge Recommendations Home with Assistance Home Equipment Needs recommend shower seat and grab bars in shower Transportation Needs at Discharge Private Vehicle
--- NOTE | 2019-08-11 14:30 | PT.IIE ---
Physical Therapy Inpatient Evaluation/Re-Eval M1 PT/OT-IP Prior Functional Status Start: 08/11/19 10:39 Freq: Status: Active Protocol: Document 08/11/19 13:50 EG (Rec: 08/11/19 15:07 EG [id number]) Medical Review Prior Functional Status Medical History Reviewed Yes Mobility and Gait Patient was ambulating Independetly and [place]. Prior Functional Level (Other details) Independent and driving Social History Household Members spouse Living Arrangements House Number of Floors (Floors) One Floor Number of Stairs To Enter/Railing? 1 step, no railing Employment Status Retired Additional Social History Comment 1-story house, patient does not have any concerns about getting around in the house. Does have 2 little dogs. Lives with M2 PT-IP Current Condition Start: 08/11/19 10:39 Freq: Status: Active Protocol: Document 08/11/19 13:50 EG (Rec: 08/11/19 15:07 EG [id number]) Physical Therapy Current Condition Current Condition Evaluation Date 08/11/19 Treatment Diagnosis Weakness in L arm/leg Onset Date June, Weight Bearing Status Weight Bearing Status Full Weight Bearing M3 PT-IP Subjective Start: 08/11/19 10:39 Freq: Status: Active Protocol: Document 08/11/19 13:50 EG (Rec: 08/11/19 15:07 EG [id number]) Subjective Physical Therapy Visit Type Type Initial Evaluation Visit Start Time 13:50 Visit Stop Time 14:30 Total Visit Minutes 40 Number of CERTIFIED SURGICAL TECH/FIRST ASSISTANT Visits 0 Physical Therapy Visit Comments Patient Comments Patient reported that he had a 7/10 pain in his L leg. Patient reported that he was confident about recovery from the R paresthesia in his leg. Patient Goals Patient would like to go home and go back on his motorcycle when he is able to Therapy Pain Assessment Pain When Pain Assessed At Rest Pain Present Pain Present Pain Reported Location Left Leg Intensity 7 Scale Used Numeric (1 - 10) M4 PT-IP Mobility and Gait Start: 08/11/19 10:39 Freq: Status: Active Protocol: Document 08/11/19 13:50 EG (Rec: 08/11/19 15:07 EG [id number]) PT-Bed Mobility Assessment Sit to Supine Sit to Supine Standby Assistance PT-Transfer Assessment Sit to and From Stand Sit to and from Stand Standby Assistance,1 Person Assistance Equipment Transfer Assistive Device Gait Belt,Front Wheeled Walker Orthotic/Prosthetic Devices or Brace: No Transfers Transfer Destination Chair Transfer Ability Level of Assist Standby Assistance,1 Person Assistance Comments Mobility Comments Patient able to stand from sitting in recliner chair with SBA and FWW in front of patient. Gait belt was put on and patient was able to maintain balance and stability when statically standing. Patient did have slight LOB where he had to hold on to bed when turning head to the R to look at the SHOWROOM EXECUTIVE DIRECTOR. Patient was able to sit down from standing with SBA. Gait Assessment Gait Gait Assistance Required: Standby Assistance Distance (Feet) 100 Able to Maintain Weight Bearing Status Yes During Gait Assistive Devices Assistive Device None,Gait Belt,Front Wheeled Walker Orthotic/Prosthetic Devices or Brace: No Gait Deviations General Gait Pattern Decreased Stride Length,Flexed Trunk,Narrow Based Gait Factors Limiting Gait Function Factors Limiting Gait Function Decreased Activity Tolerance, Decreased Sensation,Decreased Strength,Incoordination,Pain, Poor Balance Comments Gait Comments Patient ambulated 50 feet with FWW and 50 feet without FWW. Patient needed multiple verbal cues to keep FWW closer to him and did have a flexed trunk when walking with the FWW. His step width was narrow and patient was cued to increase JACOB. When walking without FWW, patient had flexed trunk and had increased walking speed. Patient did have slightly decreased step height on the LLE. Patient was CGA with gait belt on. PT-Balance Assessment Sitting Balance and Reactions Static Sitting Balance Ability Good Standing Balance and Reactions Static Standing Balance Ability Good Dynamic Standing Balance Ability Fair Balance Tests Romberg 20 sec, eyes closed Comments Other Balance Tests/Deviations/Treatment Patient had decreased balance : with eyes closed and feet together but had normal sway from side to side. Gait belt was on with CGA and FWW in front of patient. Patient had poor balance with head turns when statically standing. M5 PT-IP Objective Assessments Start: 08/11/19 10:39 Freq: Status: Active Protocol: Document 08/11/19 13:50 EG (Rec: 08/11/19 15:07 EG [id number]) Orientation Orientation/Cognition Level of Alertness Alert Language Function Ability No Deficits Noted Safety Awareness Understands Safety Issues Memory Description No Deficits Noted Comments Patient was accurately able to give medical history as well as location of home and home set up. Gross Range of Motion Lower Extremity ROM Assessment Within Functional Limits Strength Lower Extremity Strength Assessment Left Impaired Hip L hip flexion: 3 - R hip flexion: 4 Knee L knee extension: 3 with pain; L knee flexion: 3 - R knee ext/flex: 4+ Ankle L dorsiflexion: 3+ - R dorsiflexion: 4+ Comments Strength Comments Patient had gross L LE weakness that was limited with p! of anterior L thigh. Coordination Assessment Gross Coordination Gross Coordination WNL Assessment Pronation/Supination Test Normal Performance Foot Tapping Test Minimal Impairment Coordination Comments Patient lost pattern of foot taps due to distraction looking at SHOWROOM EXECUTIVE DIRECTOR in the room. Unable to keep L and R symmetrical Sensation Assessment Comments Sensation Comments Patient reports history of peripheral neuropathy in bilateral feet. Patient reports numbness in the L anterior thigh moving from L hip to L distal thigh. Muscle Tone Muscle Tone WNL Yes M6 PT-IP Treatment Start: 08/11/19 10:39 Freq: Status: Active Protocol: Document 08/11/19 13:50 EG (Rec: 08/11/19 15:07 EG [id number]) Physical Therapy Treatment Education Education Provided Safety Equipment Issued Equipment Type and Company Patient was recommended to brass pickler a FWW from local 2nd- hand store to have on hand when at home M7 PT-IP Assessment and Plan Start: 08/11/19 10:39 Freq: Status: Active Protocol: Document 08/11/19 13:50 EG (Rec: 08/11/19 15:07 EG [id number]) PT Summary Assessment and Plan Potential Rehabilitation Potential Good Status of Condition at Evaluation Stable Summary Impairments Pain,Strength,Balance, Coordination,Sensation,Gait, Activity Tolerance Assessment Summary Patient was seated in recliner when PT arrived alert and aware of situation after finishing OT treatment. Patient is aware of sensation loss in LE and weakness in the left lower extremity. Patient does have weakness in this side but is able to transfer safely moving from seated to standing and can maintain static balance. Patient does have fair balance when performing dual taks standing and will benefit from future balance and coordination training. Patient does fatigue after ambulating for 50 feet and will benefit from taking frequent breaks as well as future cardiovascular training . Patient will have his at home to help with transition back to home and helping with ADL's if needed. Patient insists on not using FWW when at home because he is not mentally ready to do this but PT educated him on importance of having walker for safety if weakness and fatigue continues. Patient did understand he could get a FWW from second hand store and will consider doing this. Ambulation without FWW was assessed and patient is stable but does walk quickly so patient was cued to walk slower with more coordinated steps. Patient is safe to go home with family care at this time once medically stable. Goals Bed Mobility Goal Independent Transfer Goal Independent Gait Goal Independent Gait Distance 150 Days to Meet Goals 3 Frequency of Treatment Frequency Of Treatment Once a Day Treatment Plan Physical Therapy Treatment Plan Transfer Training,Gait Training,Therapeutic Exercise, Balance Retraining, Neuromuscular Re-ed, Coordination Retraining Other Recommendations and Next Treatment Continue to work on ambulation Focus as well as standing balance. Strength training of L lower extremity. Practice ascending and descending 1 step. Recommendations To Nursing Amount of Assist Needed 1 Person Assist Discharge Recommendations PT Discharge Recommendations Home with Assistance Transportation Needs at Discharge Private Vehicle
[2019-08-11 14:48] LABS: Add Manual Diff / Slide Review NO; Basophils Absolute Auto 100 /uL (0-100); Basophils Percent Auto 0.8 % (0-2); Eosinophils Absolute Auto 100 /uL (0-450); Eosinophils Percent Auto 1.7 % (2-4); Hematocrit 41.9 % (41-53); Hemoglobin 14.2 g/dL (13.5-17.5); Lymphocytes Absolute Auto 2100 /uL (1100-4500); Lymphocytes Percent Auto 26.6 % (25-40); Mean Corpuscular HGB Conc 33.7 % (30-36); Mean Corpuscular Hemoglobin 32.3 PG (26-34); Mean Corpuscular Volume 95.8 fL (80-100); Monocytes Absolute Auto 700 /uL (0-900); Monocytes Percent Auto 8.9 % (3-14); Neutrophils Absolute Auto 4900 /uL (1500-7000); Platelet Count 187 X10^3/uL (150-400); Red Blood Cell Count 4.38 X10^6/uL (4.5-5.9); Red Cell Distribution Width 15.5 % (11.6-14.8); White Blood Cell Count 7.9 X10^3/uL (4.5-11.0)
[2019-08-11 15:28] LABS: Uric Acid 4.8 mg/dL (3.5-8.5)
--- NOTE | 2019-08-11 16:07 | CM.DPNOTE ---
DCP Brief Assessment Note Patient is a 83 year old male who was admitted on 08/10/19 for Possible Stroke. Pt has [facility] for insurance and his PCP is Dr. Canas. EMR was reviewed. Per MD, CT was negative and pt has had weakness for a few weeks but now some concerns regarding kidney mass and DVT. Per RN, pt off floor for scan. PT/OT/ST ordered and pending. SW unable to complete bedside assessment as pt was off the floor and due to triage needs. Plan: SW to follow for bedside assessment tomorrow after diagnostics complete and PT/OT/ST initial eval and recommendations to determine needs at discharge. JONAS Fermin
[2019-08-11] MEDS: TAMSULOSIN 0.4 MG CAPSULE 0.8 MG PO (16:44)
--- NOTE | 2019-08-11 17:59 | P.DS_ITS ---
History of Present Illness History of Present Illness Date Patient Seen: 08/11/19 Time Patient Seen: 17:59 Chief complaint: possibility of stroke Narrative: 83 year old male is admitted from the ED secondary to TIA/stroke rule out. He presented in clinic today with left-sided arm and leg numbness and weakness x 7 weeks. The first symptom was left-sided numbness in his thigh from his hip to his knee status post a urinary catheterization for bladder outlet obstruction. There was associated pain, redness and swelling of the left thigh. He subsequently had an indwelling catheter for 3 weeks and was supposed to be on both pre-and post catheterization antibiotics. He did not complete the post catheterization antibiotics due to the weakness which was thought to be possibly a side effect from his antibiotics. He subsequently developed a urinary tract infection and is now on day 7/10 of antibiotics. Reports that his dysuria, polyuria, and urinary urgency have resolved. However, he continues to have left-sided thigh numbness and weakness. In the last 10 days, symptoms have worsened and he has not been able to lift his toes anymore and is starting to have foot drop. He cannot engage the gears on his motorcycle and has stopped riding his motorcycle for this reason. During the same timeframe, he has had left-sided upper extremity weakness and his sword swallower strength is reduced in his left hand. Denies a headache. No visual changes. His does report that his voice seems to be more slurred. History of TIA more than 15 years ago. 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 Most recent carotid Doppler on 07/26/2013 showed less than 50% stenosis bilaterally. He is on atorvastatin 40 mg p.o. nightly. Lipid panel on 06/17/19 revealed a total cholesterol of 140, HDL 34, triglycerides 508. LDL was unable to be calculated secondary to his high triglycerides. Medical history significant for coronary artery disease, exercise-induced angina, history of smoking, [id number] history quit at age 34, NSTEMI, diabetes, and colon cancer. Recently saw his urologist, Dr. Workman, on 04/12/19. He noted a left renal abnormality on MRI and ultrasound that was stable at 3.7 cm, renal cell carcinoma cannot be ruled out. Plan is to repeat imaging in 3 months (now) and if stable, again in 6 months. Vital signs upon admission to the ED included temperature 98.1?, pulse 81, respirations 15, blood pressure 198/81 O2 saturation 9% on room air. Repeat blood pressure was 165/55. NIH stroke scale 2. EKG showed no change from baseline. CT of the head/brain was unremarkable for acute events. Lab workup significant for an INR 1.2 and creatinine of 2.3, baseline. Patient also had a mild normocytic/normochromic anemia that is relatively new to this patient. CBC on 07/05/2019 showed a hemoglobin of 13.0, hematocrit 38.9, normocytic/normochromic, essentially the same as today's labs. Past medical history: Diabetes mellitus type 2 Hyperlipidemia Hypertension Coronary artery disease Angina Chronic kidney disease stage 4 Hypothyroidism BPH with bladder outlet obstruction, status post TURP Arthritis Gout Heart murmur Bilateral cataracts Bilateral hearing loss Depression Ataxia Past surgical history: CABG Rotator cuff repair Colon cancer excision, 2009 Appendectomy, [address] elevation [place], 2009 Bilateral cataracts, 2014 Family history: Father with heart disease and hypertension Social history: , retired. Discharge Providers Provider Date of admission: 08/10/19 12:54 Discharge Date: 08/11/19 Primary care physician: Christy Canas MD Consults: 08/10/19 17:49 Consult to Occupational Therapy Evaluate & Treat Comment: Physician Instructions: Evaluate and treat 08/10/19 17:50 Consult to Discharge Planning Routine Comment: Consult to Physical Therapy Evaluate & Treat Comment: Physician Instructions: Evaluate and Treat Consult to Speech Therapy Evaluate & Treat Comment: Physician Instructions: Evaluate and treat Discharge provider: Christy Canas MD Summary Hospital Course Discharge Diagnosis: Assessment 1: Left-sided weakness and numbness, likely TIA Assessment 2: Left renal abnormality, present on admission, 3.7 cm, concern for malignancy. Assessment 3: Diabetes mellitus type II with neuropathy, nephropathy, and vascular disease, insulin controlled, chronic. Assessment 4: Hyperlipidemia, chronic. Assessment 5: Hypertension, chronic, goal <140/[address] Workman, nephrology. Assessment 6: Coronary artery disease, chronic. Assessment 7: Angina, chronic, asymptomatic Assessment 8: Chronic kidney disease stage 4, creatinine at baseline. Assessment 9: Hypothyroidism, chronic, TSH 2.16 on 06/17/2019, at goal per endocrinology. Assessment 10: BPH with bladder outlet obstruction, status post TURP and recent 3 week cathertization with subsequent UTI, present on admission, patient clinically asymptomatic. Assessment 11: Arthritis, chronic. Assessment 12: Gout, chronic Assessment 13: Heart murmur, aortic stenosis, chronic Assessment 14: Ataxia, chronic. Assessment 15: Anemia, normocytic/normochromic, present on admission, relatively new. Mild, likely multifactorial. Hospital Course: Patient had an uneventful night and clinically improved during his hospital stay with improved strength in his left lower extremity and improved motor function of his left foot. He declined MRI stroke protocol secondary to the contrast. He does have chronic kidney disease, stage IV and did not want to proceed with any contrast studies that could worsen his kidney function. Echo showed a 50-65% ejection fraction with known aortic stenosis and no significant valvular disease. Carotid Doppler showed a 50-69% stenosis within the right internal carotid artery and occlusion of the origin of the left internal carotid artery. D-dimer was elevated at 313, duplex ultrasound of the left lower extremity was negative for DVT. Patient was due for a renal ultrasound for surveillance of his renal mass, no change in size was appreciated in the left kidney but the radiologist did say that it is likely a low-grade left renal cell carcinoma. Long discussion was had with patient and his family regarding next steps. He is feeling better and wants to go home tonight. He is open to proceeding with an MRI as an outpatient but does not want to do any more workup in the hospital. He understands that he has a carotid artery blockage and is agreeable to an outpatient referral to vascular surgery. He will follow-up with his coordinator hotels in the outpatient setting regarding his renal mass. Plan will be to follow-up with him in 1 week in the clinic. Goals for that visit will be to ensure patient has appointment for his outpatient MRI, if desired, as well as a vascular surgery appointment. In the meantime, have increased his atorvastatin to 80 mg p.o. q.h.s. and discussed continuing his aspirin as well as maintaining a low-cholesterol diet and regular exercise plan. Pharmacy reviewed all of patient's medication during his stay to check for renal dosing. Based on their recommendations, have discontinued his hydrochlorothiazide and decreased his lisinopril from 30 mg to 20 mg p.o. b.i.d. . Will check his blood pressure in 1 week and coordinate closely with Nephrology. On evening of discharge, patient is clinically improved with stable vital signs throughout. He understands to return promptly for any worsening symptoms including weakness, speech changes, difficulty swallowing, worsening numbness, or any other concerns. Time spent on Discharge and Coordination of post-hospital care: 35 minutes Status at Discharge Cognitive/behavioral status at discharge: oriented Functional status at discharge: independent ambulation Overall status at discharge: patient is progressing back to baseline Exam Vital Signs (past 8 hours): - 08/11/19 10:58 08/11/19 10:59 08/11/19 11:00 Temperature Pulse Rate 82 82 82 Respiratory Rate Blood Pressure 168/81 H 168/81 H 168/81 H Pulse Oximetry 08/11/19 11:30 08/11/19 15:35 Temperature 100.0 F H 99.8 F H Pulse Rate 88 65 Respiratory Rate 18 18 Blood Pressure 183/82 H 149/80 H Pulse Oximetry 96 94 Oxygen Delivery Method Room Air Oxygen Flow Rate 0 Narrative Exam Narrative: General: Alert and oriented, appearing stated age and in no acute distress. Head: Head normocephalic/atraumatic. Eyes: conjunctiva and sclera clear, Ears: normal external exam, TM's intact and clear with normal canals, Nose: no deformity, discharge, inflammation, or lesions, Mouth: no deformity or lesions; pharynx normal without injection or exudate, Neck: Neck soft and supple, no lymphadenopathy. (unchanged from 06/17/2019) Lungs: Clear to auscultation bilaterally, no wheezes, rhonchi or rales. no wheezes rales or rhonchi. Heart: Normal S1 and S2 with regular rate and rhythm, no audible murmurs, rubs or gallops. Abdomen: Soft, non-tender, non-distended, no organomegaly. Possitive bowel sounds.bowel sounds positive. Msk: Increased muscle bulk and tone over cervical paraspinous muscles. Range of motion limited secondary to pain and side to side and head flexion and extension. Neurologic: CN II-XII grossly intact. Decreased sensation over left thigh from hip to knee. Strength 4/5 in left upper extremity and left lower extremity. Mildly positive foot drop. Mildly positive dysdiadochokinesia in left upper and lower extremity. Reduced vxwchz-wy-oiop testing in left upper extremity. Psych: Alert and oriented x 3. Objective Labs Result Diagrams: 08/11/19 14:38 08/11/19 06:40 Labs: Laboratory Results - last 24 hr 08/11/19 08/11/19 08/11/19 06:40 06:40 14:38 WBC 7.9 RBC 4.38 L Hgb 14.2 Hct 41.9 MCV 95.8 MCH 32.3 MCHC 33.7 RDW 15.5 H Plt Count 187 Neut % (Auto) 62.0 Lymph % (Auto) 26.6 [place] % (Auto) 8.9 Eos % (Auto) 1.7 L Baso % (Auto) 0.8 Neut # (Auto) 4900 Lymph # (Auto) 2100 [place] # (Auto) 700 Eos # (Auto) 100 Baso # (Auto) 100 D-Dimer 313 H Sodium 140 Potassium 4.4 Chloride 105 Carbon Dioxide 24 BUN 31 H Creatinine 2.10 H Estimated GFR 30.2 L BUN/Creatinine Ratio 14.8 Glucose 121 H D Uric Acid Calcium 9.7 08/11/19 14:38 WBC RBC Hgb Hct MCV MCH MCHC RDW Plt Count Neut % (Auto) Lymph % (Auto) [place] % (Auto) Eos % (Auto) Baso % (Auto) Neut # (Auto) Lymph # (Auto) [place] # (Auto) Eos # (Auto) Baso # (Auto) D-Dimer Sodium Potassium Chloride Carbon Dioxide BUN Creatinine Estimated GFR BUN/Creatinine Ratio Glucose Uric Acid 4.8 Calcium Discharge Plan Discharge Plan Patient Disposition: Home Discharge comment: 1. Outpatient MRI, they will call you for an appointment. 2. Follow up with vascular surgery, they will call you for an appointment. Discharge orders & Medications Prescriptions: New lisinopril 20 mg Tablet 20 mg PO BID Qty: 90 RF: 3 Continued aspirin 81 mg Tablet,Delayed Release (Dr/Ec) 81 mg PO DAILY Qty: 0 RF: 0 tamsulosin 0.4 mg Capsule 0.8 mg PO QPM Qty: 0 RF: 0 allopurinol 300 mg Tablet 300 mg PO QPM Qty: 0 RF: 0 hydrocodone-acetaminophen 5-325 mg tablet 1 tab PO Q4-6H PRN (Reason: pain) RF: 0 cyclobenzaprine 10 mg Tablet 10 mg PO TID PRN (Reason: Muscle Spasm) RF: 0 hydralazine 10 mg Tablet 10 mg PO BID RF: 0 acetaminophen 325 mg Tablet 325 - 650 mg PO Q4-6H PRN (Reason: Fever Or Pain) RF: 0 metoprolol succinate 200 mg Tablet Extended Release 24 Hr 200 mg PO DAILY RF: 0 isosorbide mononitrate 60 mg Tablet Extended Release 24 Hr 60 mg PO DAILY RF: 0 amlodipine 10 mg Tablet 10 mg PO DAILY RF: 0 levothyroxine 50 mcg Tablet 50 mcg PO DAILY RF: 0 indomethacin 50 mg Capsule 50 mg PO Q8H PRN (Reason: JOINT PAIN) RF: 0 nitroglycerin [Nitrostat] 0.4 mg Tablet, Sublingual 0.4 mg SUBLINGUAL Q5-15M PRN (Reason: Chest Pain) RF: 0 gabapentin 100 mg Capsule 100 mg PO TID PRN (Reason: PAIN) RF: 0 Humulin 70/30 U-100 Insulin 100 unit/mL (70-30) Suspension 46 unit SUBCUT BID RF: 0 Changed atorvastatin 80 mg Tablet 80 mg PO QPM Qty: 0 RF: 0 Discontinued lisinopril 30 mg Tablet 30 mg PO BID RF: 0 hydrochlorothiazide 25 mg Tablet 25 mg PO DAILY RF: 0 Follow up/Referrals: Christy Canas MD [Primary Care Provider] - Diet/Activity/Treatments Diet: Carb-consistent/Diabetic Activity: as tolerated Skin/Wound/Dressing Care Report to your healthcare provider any signs of infection, such as:: chills, fever and increased pain Visit Report/Discharge Packet Instructions: DI for Transient Ischemic Attack Discharge Data Primary Care Provider: Christy Canas Quality VTE Deep Vein Thrombosis/Pulmonary Embolism Present on Admission: No
--- NOTE | 2019-08-11 18:52 | PC.NURSE ---
Discharge Orders for discharge were received. The patient and family were made aware of the plan for discharge and were agreeable to go. Information, including handouts, were given to the patient including information on diagnosis, signs and symptoms to be aware of, scripts with teaching on new medications and medication changes, as well as follow-up directions. The patient stated understanding of this information and the IV was removed intact by student RN. All belongings gathered and accompanied patient. The patient then ambulated to a wheelchair and was wheeled to the main entrance to a private vehicle. At the time of discharge the patient was alert and oriented, with no complaints of chest pain, shortness of breath, nausea, vomiting or other difficulty.
--- NOTE | 2019-08-31 14:01 | PC.NURSE ---
late entry: NS stop time 08/10 0218
== END 2019-08-11 18:15 | disposition home or self-care (01) ==
LOC: ED 12:51 → AC 15:21
PROVIDERS: Admitting Provider Student in an Organized Health Care Education/Training Program; Emergency Provider Emergency Medicine; PCP Student in an Organized Health Care Education/Training Program; Referring Provider Emergency Medicine; Visit Provider Student in an Organized Health Care Education/Training Program
DX: R29.818 Other symptoms and signs involving the nervous system (principal); E11.9 Type 2 diabetes mellitus without complications; Z79.4 Long term (current) use of insulin; I10 Essential (primary) hypertension; E78.5 Hyperlipidemia, unspecified; N18.4 Chronic kidney disease, stage 4 (severe); Z95.1 Presence of aortocoronary bypass graft; R20.0 Anesthesia of skin; E11.43 Type 2 diabetes mellitus with diabetic autonomic (poly)neuropathy; I25.10 Atherosclerotic heart disease of native coronary artery without angina pectoris; E03.9 Hypothyroidism, unspecified; D64.9 Anemia, unspecified; R27.0 Ataxia, unspecified; R01.1 Cardiac murmur, unspecified; N40.0 Benign prostatic hyperplasia without lower urinary tract symptoms
CPT/HCPCS: 36415; 70450; 76770; 80048; 82962; 84550; 85025; 85379; 85610; 85730; 92523; 93005; 93306; 93880; 93971; 96360; 96361; 96372; 97116; 97161; 97165; 97535; 99285; G0378; J1650

== ENCOUNTER → 2019-09-17 09:08 | Outpatient (CLI) | payer OTHER, SELFPAY ==
[2019-08-10 14:04] VITALS: BMI 34.0
--- NOTE | 2019-09-17 | DI.MRI.S_ITS ---
PROCEDURE: MR STROKE Pre- and post-contrast brain MRI, non-contrast brain MR angiogram, pre- and postcontrast neck MR angiogram INDICATIONS: Occlusion and stenosis of right carotid artery TECHNIQUE: Brain: Noncontrast axial T1 spin echo, axial T2 fast spin echo, sagittal and axial FLAIR, coronal T2 fast spin echo, axial gradient echo, axial diffusion and ADC through the brain. After the administration of contrast, axial 3D VIBE of the cranial vasculature and brain. Brain MRA: Non-contrast 3-D time of flight MR angiogram, with multiple fhptmix-lcmzfkmby-qbzteayxtm (MIP) reformats performed. Neck MRA: Axial and sagittal TruFISP through the neck. Coronal dynamic MR angiogram during administration of contrast in the arterial and venous phases, with 3-dimenstional bgqngdp-gswlloeff-knckjrtscv (MIP) reformats constructed from subtraction images. COMPARISON: [facility], , CAROTID DOPPLER BI, 08/11/2019, 9:00. FINDINGS: Image quality: Excellent. BRAIN: The ventricular system and cortical sulci demonstrate atrophy, consistent for the patient's stated age. There are areas of increased T2/FLAIR signal intensity within the periventricular and subcortical white matter. There is no acute intra-or extra axial fluid collection. No acute hemorrhage, mass lesion or midline shift. Brainstem is unremarkable. There are no areas of restricted diffusion. Globes are symmetrical. There is complete opacification of the right maxillary sinus. Osseous structures are intact. BRAIN MR ANGIOGRAM: The posterior circulation demonstrates a left vertebral artery dominance. There is a markedly diminutive appearance of the distal right vertebral artery at the vertebrobasilar junction. Basilar artery and posterior cerebral arteries demonstrate no areas of hemodynamically significant stenosis, vascular occlusion or aneurysmal dilation. Posterior communicating arteries are within normal limits. The anterior circulation, including the anterior and middle cerebral arteries, as well as internal carotid arteries demonstrates no areas of hemodynamically significant stenosis, vascular occlusion or aneurysmal dilation. NECK MR ANGIOGRAM: The origins of the left and right common and external carotid arteries demonstrate no areas of hemodynamically significant stenosis, vascular occlusion or aneurysmal dilation. There is approximate 40-50% narrowing at the origin of the right internal carotid artery. The left internal carotid artery is occluded at the origin. Origin of the left vertebral artery demonstrates no areas of hemodynamically significant stenosis, vascular occlusion or aneurysmal dilation. Prominent artifact is present at the origin of the right vertebral artery, obscuring evaluation. Aortic arch demonstrates conventional anatomy. Limited, visualized portions of the subclavian vasculature are unremarkable. IMPRESSION: 1. No acute intracranial process. 2. Moderate to severe atrophy and chronic microvascular ischemic changes. 3. Occlusion of the left internal carotid artery from the origin. 4. Approximate 40-50% stenosis at the origin of the right internal carotid artery. Dictated by: Lina Tijerina M.D. on 09/17/2019 at 10:30 Approved by: Lina Tijerina M.D. on 09/17/2019 at 10:39
== END ==
PROVIDERS: PCP Student in an Organized Health Care Education/Training Program; Referring Provider Surgery; Visit Provider Surgery
DX: I65.23 Occlusion and stenosis of bilateral carotid arteries (principal)
CPT/HCPCS: 70548; 70553; A9579

== ENCOUNTER 2019-09-18 18:44 | Emergency (ER) | payer OTHER, SELFPAY ==
[2019-08-10 14:04] VITALS: BMI 34.0
[2019-09-18] VITALS (8 sets, daily range): BP systolic 118–170; BP diastolic 65–86; PULSE 92–109; RESP 14–20; TEMP 36.8; O2SAT 88–97
--- NOTE | 2019-09-18 18:47 | DI.RAD.S_ITS ---
PROCEDURE: XR CHEST 1V INDICATIONS: SOB, CP TECHNIQUE: One view of the chest was acquired. COMPARISON: [facility] [place], CR, XR SHOULDER 2+ VIEWS LEFT, 08/14/2018, 10:24. FINDINGS: Surgical changes and devices: Sternal wires consistent with previous bypass procedure are noted, unchanged. Fracture third sternal wire is noted. Lungs and pleura: Mild increased pulmonary vascularity is present. There is blunting of the costophrenic angles. Mediastinum: Mediastinal contours appear normal. Heart size is enlarged. Bones and chest wall: No suspicious bony lesions. Overlying soft tissues appear unremarkable. IMPRESSION: Increased vascularity with trace effusions consistent with edema. Dictated by: Lina Tijerina M.D. on 09/18/2019 at 19:24 Approved by: Lina Tijerina M.D. on 09/18/2019 at 19:26
--- NOTE | 2019-09-18 18:50 | ED_ITS ---
HPI - Chest Pain General Chief Complaint: Chest Pain Stated Complaint: CP Time Seen by Provider: 09/18/19 18:46 Source: patient Limitations: no limitations History of Present Illness HPI narrative: 83-year-old male former smoker with extensive cardiac history including a CABG about 7 years ago in [place] presents with a chief complaint of progressively worsening retrosternal chest pain over the past day. He has become significantly short of breath and fatigued and any exertion seems to worsen his symptoms. He denies any nausea, vomiting or diaphoresis. He states it has been quite sometime since he has had any provocative testing. He does not have a local enrollment advisor. He denies recent travel or exposure to persons under suspicion for the mariano virus. He took some of his nitro at home (which is over 1-year-old) and had minimal change in his symptoms. On arrival he was short of breath with increased work of breathing and chest pain about 5/10. Patient was most recently seen here on 08/10 and admitted for TIA. MRI performed yesterday. MD complaint: chest pain Onset (ago): hour(s) Duration: constant Onset: during rest and during exertion Pain location: substernal Severity: moderate Quality: tightness, aching and heaviness Pain radiation: none Relieving factors: nothing Exacerbating factors: exertion Associated symptoms: dyspnea Treatments prior to arrival chest pain: nitroglycerin Related Data Home Medications Medication Instructions Recorded Confirmed allopurinol 300 mg PO QPM #0 01/01/10 08/10/19 aspirin 81 mg PO DAILY #0 01/01/10 08/10/19 tamsulosin 0.8 mg PO QPM #0 01/01/10 08/10/19 acetaminophen 325 - 650 mg PO Q4-6H PRN 06/28/19 08/10/19 amlodipine 10 mg PO DAILY 06/28/19 08/10/19 cyclobenzaprine 10 mg PO TID PRN 06/28/19 08/10/19 gabapentin 100 mg PO TID PRN 06/28/19 08/10/19 hydralazine 10 mg PO BID 06/28/19 08/10/19 hydrocodone-acetaminophen 1 tab PO Q4-6H PRN 06/28/19 08/10/19 indomethacin 50 mg PO Q8H PRN 06/28/19 08/10/19 isosorbide mononitrate 60 mg PO DAILY 06/28/19 08/10/19 levothyroxine 50 mcg PO DAILY 06/28/19 08/10/19 metoprolol succinate 200 mg PO DAILY 06/28/19 08/10/19 nitroglycerin [Nitrostat] 0.4 mg SUBLINGUAL Q5-15M PRN 06/28/19 08/10/19 Humulin 70/30 U-100 Insulin 46 unit SUBCUT BID 08/10/19 08/10/19 Previous Rx's Medication Instructions Recorded atorvastatin 80 mg PO QPM #0 tab 08/11/19 lisinopril 20 mg PO BID #90 tab 08/11/19 Allergies Allergy/AdvReac Type Severity Reaction Status Date / Time Anesthetic, Local Allergy Unknown Uncoded 08/10/19 11:12 Review of Systems Constitutional Constitutional: Denies chills, Denies fatigue, Denies fever(s), Denies frequent falls, Denies lethargy and Denies weakness Eyes Eyes: Denies change in vision, Denies eye discharge, Denies irritation and Denies loss of vision ENT Ears, Nose, Mouth, and Throat: Denies change in voice, Denies dizziness, Denies neck pain, Denies sore throat and Denies throat swelling Cardiovascular Cardiovascular: Reports chest pain, Denies irregular heart rhythm, Denies lightheadedness, Denies palpitations, Reports dyspnea, Denies dyspnea on exertion and Denies orthopnea Respiratory Respiratory: Denies cough, Reports dyspnea, Denies dyspnea on exertion and Denies wheezing Gastrointestinal Gastrointestinal: Denies abdominal pain, Denies change in bowel habits, Denies diarrhea, Denies nausea and Denies vomiting Genitourinary Genitourinary: Denies hematuria, Denies flank pain, Denies urinary incontinence and Denies urinary urgency Musculoskeletal Musculoskeletal: Denies back pain, Denies muscle weakness, Denies neck pain, Denies numbness and Denies tingling Integumentary/Breasts Skin/Breast: Denies pruritus, Denies erythema, Denies rash and Denies wounds Neurologic Neurologic: Denies behavioral changes, Denies confusion, Denies dizziness, Denies frequent falls, Denies loss of vision, Denies numbness, Denies tingling and Denies weakness Psychiatric Psychiatric: Denies anxiety, Denies behavioral changes, Denies confusion, Denies depression, Denies homicidal ideation and Denies suicidal ideation Endocrine Endocrine: Denies fatigue, Denies flushing and Denies palpitations Hematologic/Lymphatic Hematologic/Lymphatic: Denies easy bruising Allergic/Immunologic Allergic/Immunologic: Denies urticaria, Denies throat swelling and Denies wheezing Patient History Social History household members: spouse Smoking Status: Never smoker Smoking Status: Never smoker alcohol intake frequency: holidays/special occasions only Substance Use Type: does not use Exam Narrative Exam Narrative: GENERAL: [83] year old patient appears stated age. Well- nourished, well-developed patient, in moderate distress, very short of breath, poor color. HEAD: Atraumatic. Normocephalic. EYES: Pupils equal round and reactive. Extraocular motions intact. No scleral icterus. No injection or drainage. ENT: Nose without bleeding, purulent drainage. Throat without erythema, tonsillar hypertrophy or exudate. Airway patent. NECK: Trachea midline. Non tender CARDIOVASCULAR: Regular rate and rhythm without murmurs, gallops, or rubs. RESPIRATORY: Crackles in bilateral bases, tachypnea and shallow breathing GASTROINTESTINAL: Abdomen soft, non-tender, nondistended. EXTREMITIES: No edema or joint tenderness. BACK: Nontender without deformity or crepitance. No flank tenderness. NEURO: AOx3. SKIN: No rash or erythema of visible areas Initial Vital Signs Initial Vital Signs: Vital Signs Temperature 98.2 F 09/18/19 18:50 Pulse Rate 109 H 09/18/19 18:50 Respiratory Rate 16 09/18/19 18:50 Blood Pressure 170/86 H 09/18/19 18:50 Pulse Oximetry 88 L 09/18/19 18:50 Course Orders Ordered: ED Orders 09/18/19 18:47 XR chest 1V Stat Arterial Blood Gas Stat 09/18/19 18:48 C-Reactive Protein Quant Stat Complete Blood Count AUTO DIFF Stat Comprehensive Metabolic Panel Stat D Dimer Stat Ferritin Stat Lactate Dehydrogenase Stat Lipase Stat NT-proBNP (BNP-Adult 18+) Stat Partial Thromboplastin Time Stat Procalcitonin Stat Prothrombin Time INR Stat Troponin & CK Cardiac Panel Stat EKG-12 Lead Stat 09/18/19 19:02 EKG-12 Lead Routine 09/18/19 19:37 EKG-12 Lead Routine 04/04/20 20:53 Troponin I Stat Discontinued Medications Aspirin (Aspirin Chew) 324 mg PO NOW ONE Stop: 09/18/19 18:48 Last Admin: 09/18/19 18:59 Dose: 324 mg Documented by: ANNIE Heparin Sodium (Porcine) (Heparin) 5,000 unit IV NOW ONE Stop: 09/18/19 18:54 Last Admin: 09/18/19 19:00 Dose: 5,000 unit Documented by: ANNIE Sodium Chloride (Normal Saline 0.9%) 1,000 mls @ 100 mls/hr IV CONT JOHN Heparin Sodium/Dextrose (Heparin Drip) 25,000 unit in 500 mls @ 25.8 mls/hr IV CONT JOHN; Protocol Last Titration: 09/18/19 21:32 Dose: 12 units/kg/hr, 25.8 mls/hr Documented by: Admin: 09/18/19 19:05 Dose: 12 units/kg/hr, 25.8 mls/hr Documented by: ANNIE Nitroglycerin (Nitroglycerin) 50 mg in 250 mls @ 1.5 mls/hr IV TITRATE JOHN; Protocol Last Titration: 09/18/19 21:33 Dose: 20 mcg/min, 6 mls/hr Documented by: Titration: 09/18/19 20:00 Dose: 20 mcg/min, 6 mls/hr Documented by: Titration: 09/18/19 19:48 Dose: 10 mcg/min, 3 mls/hr Documented by: Admin: 09/18/19 19:39 Dose: 5 mcg/min, 1.5 mls/hr Documented by: KRISTIN Metoprolol Tartrate (Lopressor) 5 mg IV Q5M JOHN Stop: 09/18/19 19:11 Last Admin: 09/18/19 19:00 Dose: 5 mg Documented by: ANNIE Nitroglycerin (Nitrostat) 0.4 mg SL [id number] PRN PRN Reason: Chest Pain Last Admin: 09/18/19 19:28 Dose: 0.4 mg Documented by: Admin: 09/18/19 19:08 Dose: 0.4 mg Documented by: Admin: 09/18/19 19:01 Dose: 0.4 mg Documented by: ANNIE Reevaluation(s) Reevaluation #1: Patient now reports essentially no pain after above-stated therapies Time: 19:28 Reevaluation #2: patient pain free on Nitro drip Consultations Consultation #1: call to Cardio upon receipt of labs. Dr. Dorantes agrees that patient is most appropriate for transfer to [facility] call to Brandy (hospitalist) at [facility] whom is happy to accept call to [facility] to discuss case and they authorize transfer patient kept on tracker beyond time of transfer to allow close monitoring of 2nd troponin, which was found to be elevated over the original. This finding was called to [facility] myself whom stated she would relay it to providers involved in patient's care. Call to PCP (Missael) to inform her of findings and transfer. Vital Signs Vital signs: Vital Signs - 8 hr 09/18/19 18:50 09/18/19 19:01 09/18/19 19:08 Temperature 98.2 F Pulse Rate 109 H 100 H 93 H Respiratory Rate 16 Blood Pressure 170/86 H 166/65 H 146/70 H Blood Pressure [Left Arm] Pulse Oximetry 88 L 09/18/19 19:11 09/18/19 19:28 09/18/19 19:39 Temperature Pulse Rate 99 H 92 H 94 H Respiratory Rate 18 Blood Pressure 156/73 H 138/72 Blood Pressure [Left Arm] 143/73 H Pulse Oximetry 93 09/18/19 20:25 09/18/19 21:34 Temperature Pulse Rate 99 H 94 H Respiratory Rate 20 14 Blood Pressure 128/68 Blood Pressure [Left Arm] 118/69 Pulse Oximetry 97 94 MDM - Chest Pain Lab Data Result diagrams: 09/18/19 18:48 09/18/19 18:48 Labs: Lab Results 09/18/19 09/18/19 09/18/19 Range/Units 18:48 18:48 18:48 WBC 7.3 (4.5-11.0) X10^3/uL RBC 4.19 L (4.5-5.9) X10^6/uL Hgb 13.2 L (13.5-17.5) g/dL Hct 40.0 L (41-53) % MCV 95.5 (80-100) fL MCH 31.5 (26-34) PG MCHC 33.0 (30-36) % RDW 15.0 H (11.6-14.8) % Plt Count 148 L (150-400) X10^3/uL Neut % (Auto) 65.3 (50-75) % Lymph % (Auto) 22.1 L (25-40) % Gaines % (Auto) 10.5 (3-14) % Eos % (Auto) 1.4 L (2-4) % Baso % (Auto) 0.7 (0-2) % Neut # (Auto) 4800 (9718-8275) /uL Lymph # (Auto) 1600 (3731-2507) /uL Gaines # (Auto) 800 (0-900) /uL Eos # (Auto) 100 (0-450) /uL Baso # (Auto) 100 (0-100) /uL PT 14.1 H (10.1-12.7) SECONDS INR 1.2 (0.9-1.3) APTT 38 H (26.4-36.2) SECONDS D-Dimer 319 H (<230) ng/mL Sodium 140 (137-145) mmol/L Potassium 4.9 (3.4-5.1) mmol/L Chloride 107 (98-107) mmol/L Carbon Dioxide 23 (22-32) mmol/L BUN 30 H (9-20) mg/dL Creatinine 2.24 H (0.66-1.25) mg/dL Estimated GFR 28.1 L (>60) mL/min BUN/Creatinine Ratio 13.4 (6-22) Glucose 147 H (80-110) mg/dL Calcium 9.9 (8.4-10.2) mg/dL Ferritin 82 (18-464) ng/mL Total Bilirubin 0.6 (0.2-1.3) mg/dL AST 30 (17-59) IU/L ALT 31 (<50) IU/L Alkaline Phosphatase 135 H (38-126) U/L Lactate Dehydrogenase 473 (313-618) U/L Total Creatine Kinase 52 L (55-170) U/L CK-MB (CK-2) TNP CK-MB (CK-2) Rel Index TNP Troponin I 0.107 H (0.01-0.034) ng/mL C-Reactive Protein 3.9 H (<1.0) mg/dL NT-Pro-B Natriuret Pep 5510 H (<450) pg/mL Total Protein 8.1 (6.3-8.2) g/dL Albumin 4.5 (3.5-5.0) g/dL Globulin 3.6 (1.7-4.1) g/dL Albumin/Globulin Ratio 1.3 (1.0-2.8) Lipase 84 (23-300) U/L Procalcitonin (<0.5) ng/mL 09/18/19 09/18/19 Range/Units 18:48 20:53 WBC (4.5-11.0) X10^3/uL RBC (4.5-5.9) X10^6/uL Hgb (13.5-17.5) g/dL Hct (41-53) % MCV (80-100) fL MCH (26-34) PG MCHC (30-36) % RDW (11.6-14.8) % Plt Count (150-400) X10^3/uL Neut % (Auto) (50-75) % Lymph % (Auto) (25-40) % Gaines % (Auto) (3-14) % Eos % (Auto) (2-4) % Baso % (Auto) (0-2) % Neut # (Auto) (9731-8386) /uL Lymph # (Auto) (2548-3308) /uL Gaines # (Auto) (0-900) /uL Eos # (Auto) (0-450) /uL Baso # (Auto) (0-100) /uL PT (10.1-12.7) SECONDS INR (0.9-1.3) APTT (26.4-36.2) SECONDS D-Dimer (<230) ng/mL Sodium (137-145) mmol/L Potassium (3.4-5.1) mmol/L Chloride (98-107) mmol/L Carbon Dioxide (22-32) mmol/L BUN (9-20) mg/dL Creatinine (0.66-1.25) mg/dL Estimated GFR (>60) mL/min BUN/Creatinine Ratio (6-22) Glucose (80-110) mg/dL Calcium (8.4-10.2) mg/dL Ferritin (18-464) ng/mL Total Bilirubin (0.2-1.3) mg/dL AST (17-59) IU/L ALT (<50) IU/L Alkaline Phosphatase (38-126) U/L Lactate Dehydrogenase (313-618) U/L Total Creatine Kinase (55-170) U/L CK-MB (CK-2) CK-MB (CK-2) Rel Index Troponin I 0.568 H* (0.01-0.034) ng/mL C-Reactive Protein (<1.0) mg/dL NT-Pro-B Natriuret Pep (<450) pg/mL Total Protein (6.3-8.2) g/dL Albumin (3.5-5.0) g/dL Globulin (1.7-4.1) g/dL Albumin/Globulin Ratio (1.0-2.8) Lipase (23-300) U/L Procalcitonin 0.12 (<0.5) ng/mL ECG Data Attestation: I personally reviewed and interpreted this ECG as follows: Interpretation: Normal sinus rhythm with a rate of 98, P are 158, QRS 116, QTC 465. Wandering baseline due to tachypnea but ST depressions in lateral leads and possible to noted on EKG 1 @ [id number] pain coming back, now 4/10, nitro given. pain improving. Second line placed, NG drip ordered. Call to [facility] Time Critical Care Time Critical Care Time: Yes Total Critical Care Time: 30 Attestation: The high probability of a clinically significant, sudden or life threatening deterioration of the [CV] system(s) required my full and direct attention, intervention and personal management. The aggregate critical care time was [30] minutes. This time is in addition to time spent performing reported procedures but includes the following: [x] Data Review and interpretation [x] Patient assessment and monitoring of vital signs [x] Documentation [x] Medication orders and management Discharge Plan Departure Patient Disposition: [facility] Clinical Impression: Angina pectoris, unstable Discharge Date/Time: 09/18/19 21:34 Prescriptions: No Action aspirin 81 mg Tablet,Delayed Release (Dr/Ec) 81 mg PO DAILY Qty: 0 RF: 0 tamsulosin 0.4 mg Capsule 0.8 mg PO QPM Qty: 0 RF: 0 allopurinol 300 mg Tablet 300 mg PO QPM Qty: 0 RF: 0 hydrocodone-acetaminophen 5-325 mg tablet 1 tab PO Q4-6H PRN (Reason: pain) RF: 0 cyclobenzaprine 10 mg Tablet 10 mg PO TID PRN (Reason: Muscle Spasm) RF: 0 hydralazine 10 mg Tablet 10 mg PO BID RF: 0 acetaminophen 325 mg Tablet 325 - 650 mg PO Q4-6H PRN (Reason: Fever Or Pain) RF: 0 metoprolol succinate 200 mg Tablet Extended Release 24 Hr 200 mg PO DAILY RF: 0 isosorbide mononitrate 60 mg Tablet Extended Release 24 Hr 60 mg PO DAILY RF: 0 amlodipine 10 mg Tablet 10 mg PO DAILY RF: 0 levothyroxine 50 mcg Tablet 50 mcg PO DAILY RF: 0 indomethacin 50 mg Capsule 50 mg PO Q8H PRN (Reason: JOINT PAIN) RF: 0 nitroglycerin [Nitrostat] 0.4 mg Tablet, Sublingual 0.4 mg SUBLINGUAL Q5-15M PRN (Reason: Chest Pain) RF: 0 gabapentin 100 mg Capsule 100 mg PO TID PRN (Reason: PAIN) RF: 0 Humulin 70/30 U-100 Insulin 100 unit/mL (70-30) Suspension 46 unit SUBCUT BID RF: 0 lisinopril 20 mg Tablet 20 mg PO BID Qty: 90 RF: 3 atorvastatin 80 mg Tablet 80 mg PO QPM Qty: 0 RF: 0 Referrals: Christy Canas MD [Primary Care Provider] -
[2019-09-18 18:57] LABS: Add Manual Diff / Slide Review NO; Basophils Absolute Auto 100 /uL (0-100); Basophils Percent Auto 0.7 % (0-2); Eosinophils Absolute Auto 100 /uL (0-450); Eosinophils Percent Auto 1.4 % (2-4); Hemoglobin 13.2 g/dL (13.5-17.5); Lymphocytes Absolute Auto 1600 /uL (1100-4500); Lymphocytes Percent Auto 22.1 % (25-40); Mean Corpuscular Hemoglobin 31.5 PG (26-34); Mean Corpuscular Volume 95.5 fL (80-100); Monocytes Absolute Auto 800 /uL (0-900); Monocytes Percent Auto 10.5 % (3-14); Neutrophils Absolute Auto 4800 /uL (1500-7000); Neutrophils Percent Auto 65.3 % (50-75); Platelet Count 148 X10^3/uL (150-400); Red Blood Cell Count 4.19 X10^6/uL (4.5-5.9); White Blood Cell Count 7.3 X10^3/uL (4.5-11.0)
[2019-09-18] MEDS: ASPIRIN 81 MG CHEW TAB 324 MG PO (18:59)
[2019-09-18] MEDS: METOPROLOL TARTRATE 5 MG/5 ML INJ IV (19:00)
[2019-09-18] MEDS: HEPARIN 5,000 UNIT/ML VIAL 5000 UNIT IV (19:00)
[2019-09-18] MEDS: NITROGLYCERIN 0.4 MG SL TAB SL ×3 (19:01→19:28)
[2019-09-18 19:04] LABS: INR 1.2 (0.9-1.3); Prothrombin Time 14.1 SECONDS (10.1-12.7)
[2019-09-18] MEDS: HEPARIN DRIP 25,000 UNIT/500 ML IV.SOLN 25.8 UNIT IV (19:05)
[2019-09-18 19:07] LABS: PTT Partial Thromboplastin Tim 38 SECONDS (26.4-36.2)
[2019-09-18 19:12] LABS: D Dimer 319 ng/mL (<230)
[2019-09-18 19:14] LABS: Alanine Aminotransferase 31 IU/L (<50); Albumin 4.5 g/dL (3.5-5.0); Albumin Globulin Ratio 1.3 (1.0-2.8); Alkaline Phosphatase 135 U/L (38-126); Aspartate Aminotransferase 30 IU/L (17-59); BUN Creatinine Ratio 13.4 (6-22); Bilirubin Total 0.6 mg/dL (0.2-1.3); Blood Urea Nitrogen 30 mg/dL (9-20); C-Reactive Protein Quant 3.9 mg/dL (<1.0); Calcium 9.9 mg/dL (8.4-10.2); Carbon Dioxide 23 mmol/L (22-32); Chloride 107 mmol/L (98-107); Creatine Kinase 52 U/L (55-170); Estimated Glomerular Filt Rate 28.1 mL/min (>60); Globulin 3.6 g/dL (1.7-4.1); Glucose 147 mg/dL (80-110); HEMOLYSIS < 15 (0-50); Lactate Dehydrogenase 473 U/L (313-618); Lipase 84 U/L (23-300); Potassium 4.9 mmol/L (3.4-5.1); Sodium 140 mmol/L (137-145); Total Protein 8.1 g/dL (6.3-8.2)
[2019-09-18 19:23] LABS: NT-proBNP (BNP-Adult 18+) 5510 pg/mL (<450); Troponin I 0.107 ng/mL (0.01-0.034)
--- NOTE | 2019-09-18 19:24 | PC.NURSE ---
nitro x 2 resolved chest pains to 0/10. one metoprolol given, 145/77, 90HR, provider notified and stopped metoprolol.
--- NOTE | 2019-09-18 19:25 | PC.NURSE ---
Patient continues to speak in short 4 and 5 word sentences. Patient states he does not wear O2 at home, he is requiring 2L NC to maintain sats above 92%
[2019-09-18 19:27] LABS: Procalcitonin 0.12 ng/mL (<0.5)
--- NOTE | 2019-09-18 19:30 | PC.NURSE ---
patient now reporting chest pain is ramping back up. reports 09/23. states his pain in right in the middle of his chest and is not radiating anywhere. Provider notified and at bedside.
[2019-09-18] MEDS: NITROGLYCERIN 50 MG/250 ML INFUS..BTL IV (19:39)
[2019-09-18 19:46] LABS: Ferritin 82 ng/mL (18-464)
--- NOTE | 2019-09-18 20:00 | PC.NURSE ---
reports little to no reliefe from nitro drip. drip increased to 20mcg/min. Patient reports reduction in chest pain to 3 or 4/10. Provider aware.
--- NOTE | 2019-09-18 21:33 | PC.NURSE ---
heparin and nitro continuing in transport.
[2019-09-18 22:11] LABS: Troponin I 0.568 ng/mL (0.01-0.034)
== END 2019-09-18 21:34 | disposition short-term general hospital (02) ==
PROVIDERS: Emergency Provider Emergency Medicine; PCP Student in an Organized Health Care Education/Training Program
DX: I20.0 Unstable angina (principal); R06.02 Shortness of breath
CPT/HCPCS: 36415; 71045; 80053; 82550; 82728; 83615; 83690; 83880; 84145; 84484; 85025; 85379; 85610; 85730; 86140; 93005; 96365; 96366; 96367; 96375; 99285; 99291; 99292; J1644